=== PATIENT | male | born 1945 | race Caucasian/White ===

== ENCOUNTER 2019-04-21 15:17 | Emergency (ER) | payer MEDICARE, OTHER ==
[~2019-04-21] VITALS: Ht 180.3 cm; Wt 74.8 kg
[2019-04-21] MEDS ORDERED: LISINOPRIL2.5 MG PO (15:44)
[2019-04-21] MEDS ORDERED: KEFLEX500 MG PO (18:33)
== END 2019-04-21 19:09 | disposition home or self-care (01) ==
LOC: ED 15:17
DX: N39.0 Urinary tract infection, site not specified (principal); F17.200 Nicotine dependence, unspecified, uncomplicated; Z79.899 Other long term (current) drug therapy
CPT/HCPCS: 51702; 51798; 74022; 80053; 81001; 83690; 85025; 99283-25; 99406; J0696; J7030

== ENCOUNTER 2019-08-23 01:48 | Emergency (ER) | payer MEDICARE, OTHER ==
[~2019-08-23] VITALS: Ht 180.3 cm; Wt 69.8 kg
[~2019-08-23 01:48] MED LIST: CIPRO500 MG PO; FLOMAX0.4 MG PO; HYDREA500 MG PO; KEFLEX500 MG PO; MULTI VITAMIN1 EACH PO; PRINIVIL5 MG PO; PROSCAR5 MG PO
--- NOTE | 2019-08-23 20:44 | EKG ---
[facility] [address] [facility] [address] [place] [address] Signed Sinus bradycardia Left axis deviation Voltage criteria for left ventricular hypertrophy Cannot rule out Septal infarct , age undetermined ST \T\ T wave abnormality, consider inferior ischemia Abnormal ECG No previous ECGs available Confirmed by DEB STOVER MD ([id number]) on 08/23/2019 8:44:18 PM Electronically Signed By: DEB STOVER MD 08/23/19 2044 PATIENT NAME: DIAZ JOY Electrocardiogram DATE OF : 45 PHYSICIAN: DEB STOVER MD REPORT #: [id number] REPORT IS CONFIDENTIAL AND NOT TO BE RELEASED WITHOUT AUTHORIZATION
== END 2019-08-23 05:09 | disposition home or self-care (01) ==
LOC: ED 01:48
DX: I95.9 Hypotension, unspecified (principal); M54.6 Pain in thoracic spine; I10 Essential (primary) hypertension; F17.200 Nicotine dependence, unspecified, uncomplicated; Z79.899 Other long term (current) drug therapy
CPT/HCPCS: 71045; 80053; 83735; 84484; 85025; 93005; 93010; 99284-25; J7040

== ENCOUNTER 2020-11-18 09:28 | Emergency (ER) | payer MEDICARE, OTHER ==
[~2020-11-18] VITALS: Ht 180.3 cm; Wt 67.6 kg
[~2020-11-18 09:28] MED LIST changes: +PRINIVIL20 MG PO; -PRINIVIL5 MG PO
[2020-11-18] MEDS ORDERED: ADULT LOW DOSE81 MG PO (16:05)
[2020-11-19] MEDS ORDERED: HYDROCODON-ACE1 EA10 PO (08:41)
== END 2020-11-18 13:54 | disposition home or self-care (01) ==
LOC: ED 09:28
DX: K41.30 Unilateral femoral hernia, with obstruction, without gangrene, not specified as recurrent (principal); Z20.822 Contact with and (suspected) exposure to COVID-19; I10 Essential (primary) hypertension; F17.200 Nicotine dependence, unspecified, uncomplicated; Z79.899 Other long term (current) drug therapy
CPT/HCPCS: 74177; 80053; 80500; 81001; 85025; 96374; 99284-25; C9803; J1170; J7030; U0003

== ENCOUNTER 2020-11-18 13:49 | Observation (INO) | payer MEDICARE, OTHER ==
[~2020-11-18] VITALS: Ht 180.3 cm; Wt 62.3 kg
[2020-11-18] MEDS ORDERED: ADULT LOW DOSE81 MG PO (16:05)
[2020-11-19] MEDS ORDERED: HYDROCODON-ACE1 EA10 PO (08:41)
--- NOTE | 2020-11-19 19:00 | EKG ---
[facility] [address] [facility] [address] [place] [address] Signed Sinus rhythm with occasional premature ventricular complexes Left ventricular hypertrophy with repolarization abnormality Cannot rule out Septal infarct (cited on or before 23-AUG-2019) Abnormal ECG When compared with ECG of 23-AUG-2019 01:52, Significant changes have occurred Confirmed by DEB STOVRE MD (255) on 11/19/2020 7:00:37 PM Electronically Signed By: DEB STOVER MD 11/19/20 1900 PATIENT NAME: DIAZ JOY Electrocardiogram DATE OF : 45 PHYSICIAN: DEB STOVER MD REPORT #: [id number] REPORT IS CONFIDENTIAL AND NOT TO BE RELEASED WITHOUT AUTHORIZATION
== END 2020-11-19 13:25 | disposition home or self-care (01) ==
LOC: MS 13:49 → DSVR 15:20 → MS 15:20 → DSVR 15:20 → MS 20:35 → DSVR 20:35 → MS 11-19 13:25
PROVIDERS: ADMIT Surgery; ATTEND Surgery
PROC: 0YU64JZ Supplement Left Inguinal Region with Synthetic Substitute, Percutaneous Endoscopic Approach (ICD-10-PCS; principal; 2020-11-18 16:30)
DX: K40.30 Unilateral inguinal hernia, with obstruction, without gangrene, not specified as recurrent (principal); I10 Essential (primary) hypertension; F17.210 Nicotine dependence, cigarettes, uncomplicated
CPT/HCPCS: 00830; 93005; 93010; 94640; 94664; C1781; G0378; J0690; J1100; J2250; J2370; J2704; J3475; J7121

== ENCOUNTER 2020-12-19 08:19 | Emergency (ER) | payer MEDICARE, OTHER ==
[~2020-12-19] VITALS: Ht 180.3 cm; Wt 61.2 kg
[~2020-12-19 08:19] MED LIST changes: +ADULT LOW DOSE81 MG PO; +HYDROCODON-ACE1 EA10 PO
--- OUTSIDE RECORDS SUMMARY | 2020-12-19 08:26 | XMS ---
PreManage Notification: DIAZ JOY Security Senior Staff Psychologist Events No recent Security Events currently on file CRITERIA MET - [facility] CARE PROVIDERS There are no care providers on record at this time. Rolanda has no Care Guidelines for this patient. Anaya VISIT COUNT (12 MO.) 2 [facility] TOTAL 2 NOTE: Visits indicate total known visits. ED/C VISIT TRACKING (12 MO.) 12/19/2020 08:20 [facility] [place] TYPE: Emergency COMPLAINT: - LOWER BACK PAIN 11/18/2020 09:29 [facility] [place] TYPE: Emergency COMPLAINT: - ABDOMINAL PAIN DIAGNOSES: - Left lower quadrant pain - Other termination clerk (current) drug therapy - Nicotine dependence, unspecified, uncomplicated - Unilateral femoral hernia, with obstruction, without gangrene, not specified as recurrent - Essential (primary) hypertension INPATIENT VISIT TRACKING (12 MO.) 11/18/2020 15:20 [facility] [place] TYPE: Observation COMPLAINT: - INCARCERATED INGUINAL HERNIA DIAGNOSES: - Unilateral inguinal hernia, with obstruction, without gangrene, not specified as recurrent - Nicotine dependence, cigarettes, uncomplicated - Essential (primary) hypertension [id number]
== END 2020-12-19 09:58 | disposition home or self-care (01) ==
LOC: ED 08:19
DX: K59.00 Constipation, unspecified (principal); I10 Essential (primary) hypertension; D75.1 Secondary polycythemia; F17.200 Nicotine dependence, unspecified, uncomplicated; Z79.899 Other long term (current) drug therapy; Z79.82 Long term (current) use of aspirin
CPT/HCPCS: 72100; 81001; 99284-25

== ENCOUNTER 2022-10-29 08:15 | Day surgery (SDC) | payer MEDICARE, OTHER ==
[2022-10-29 09:34] VITALS: BP 193/87
--- NOTE | 2022-10-31 08:54 | OR ---
[facility] [address] [place], [place] [address] Signed DATE OF OPERATION: 10/29/2022 SURGEON: Amber Bond MD PREOPERATIVE DIAGNOSES: 1. 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 2. Soft tissue mass, left thoracolumbar area and right thoracolumbar area. POSTOPERATIVE DIAGNOSES: 1. 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 2. Soft tissue mass, left thoracolumbar area and right thoracolumbar area. PROCEDURE: biopty gun core biopsy of the of left posterior thoracolumbar soft tissue mass and core biopsy right thoracolumbar soft tissue mass. ANESTHESIA: 0.25% Marcaine with epinephrine. INDICATION: This 77-year-old white man is a patient of Dr. 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 He is recently a patient also of Dr. Carballo. He has been diagnosed as having left upper lobe adenocarcinoma of the lung. He has advanced COPD. PET scanning has shown probable metastatic disease in mediastinal lymph nodes as well as possibly right lung and questionably two soft tissue masses of the right thoracolumbar area and left thoracolumbar area. A biopsy was requested of the soft tissue masses in anticipating palliative therapy. The risk of bleeding, infection, and so forth were reviewed with him regarding core biopsies of these areas that he understands and wished to proceed. FINDINGS: Both sides provided three good core specimen tissue with a biopsy gun device. There were no complications. DESCRIPTION OF PROCEDURE: The patient was brought to the day surgery area and placed in the prone position. The lumbar areas were prepared with a chlorhexidine solution and draped sterilely. A 1% lidocaine was injected 1st over the left posterior thoracolumbar soft tissue mass. Local anesthesia allowed for incision with the tip of the blade. Using the Bard Electronically Signed By: AMBER BOND MD 10/31/22 0854 PATIENT NAME: DIAZ JOY OPERATIVE REPORT DATE OF : 45 REPORT #: [id number] PHYSICIAN: AMBER BOND MD PCP: MARLINE LIZARRAGA MD REPORT IS CONFIDENTIAL AND NOT TO BE RELEASED WITHOUT AUTHORIZATION [facility] [address] [place], [place] [address] Signed automatic disposable core biopsy device with a 22-gauge needle, three separate core specimens were obtained on the left side, elevating the neoplasm away from the chest wall. A Band-Aid was applied. Similar technique was used to provide three good core biopsies on the right side using separate instrumentation. A Band-Aid was applied. He tolerated the procedure well. MD HOLGER Smith/CONY /[id number] cc: Dara Carballo MD, PH.D. MD Marline Ellison MD Copies: DARA CARBALLO ROBERT C MD JOHNSON, ROBERT D DMD ~ Electronically Signed By: AMEBR BOND MD 10/31/22 0854 PATIENT NAME: DIAZ JOY OPERATIVE REPORT DATE OF : 45 REPORT #: [id number] PHYSICIAN: AMBER BOND MD PCP: MARLINE LIZARRAGA MD REPORT IS CONFIDENTIAL AND NOT TO BE RELEASED WITHOUT AUTHORIZATION
--- NOTE | 2022-11-08 15:16 | PATH ---
[facility] [address] [place] [address] Signed THIS IS AN ADDENDUM REPORT SPECIMEN(S): A LEFT LATERAL LUMBOTHORACIC SPECIMEN(S): B RIGHT LATERAL LUMBOTHORACIC SPECIMEN SOURCE: A. LEFT LATERAL LUMBOTHORACIC B. RIGHT LATERAL LUMBOTHORACIC CLINICAL HISTORY: Bilateral posterolateral lumbothoracic soft tissue masses greater than 5 cm; adenocarcinoma of lung. FINAL PATHOLOGIC DIAGNOSIS: A-B. Lymph nodes, left and right lateral lumbothoracic, needle core biopsies: - Low-grade B-cell lymphoma, see description and comment COMMENT: The differential diagnosis for this CD5 negative/CD10 negative low-grade B-cell lymphoma includes fadi marginal zone lymphoma and lymphoplasmacytic lymphoma. Features of a high-grade lymphoma or metastatic malignancy are not seen. Additional testing for gene rearrangements by FISH and MYD88 mutation analysis have been ordered for further classification. Testing for serum protein electrophoresis may provide additional information. Correlation with all clinical and radiographic information is needed. A diagnostic alert is initiated by Dr. Simental on November 02, 2022. This case was reviewed in consultation with a hematopathologist. BRP MICROSCOPIC EXAMINATION: Histologic sections of all submitted blocks (or IHC as applicable) are digitally scanned and examined. These findings, together with the gross examination, support the pathologic diagnosis. Sections of parts A and B show similar morphologic findings, consisting of lymphoid tissue effaced by a proliferation of small mature lymphocytes with irregular nuclei and scattered plasma cells. Immunohistochemical stains performed on block B1 demonstrate the following: CD3: Stains clusters of T cells CD5: Stains clusters of T cells CD10: Negative PATIENT NAME: DIAZ JOY PATHOLOGY DATE OF : 45 REPORT #: [id number] PHYSICIAN: MARIXA NAPOLES PCP: MARLINE LIZARRAGA MD REPORT IS CONFIDENTIAL AND NOT TO BE RELEASED WITHOUT AUTHORIZATION [facility] [address] [place], [place] [address] Signed CD20: Positive in atypical cells CD21: Stains the follicular dendritic cell meshwork CD23: Stains the follicular dendritic cell meshwork; negative in atypical cells CD43: Stains clusters of T cells; negative in atypical cells CD138: Stains clusters of plasma cells BCL2: Positive in atypical cells and T cells BCL6: Negative Cyclin D1: Negative MNDA: Positive in atypical cells PAX5: Positive in atypical cells SOX 11: Negative Ki-67: Proliferation index approximately 20-30% [employer] (bety): Strongly positive in plasma cells, dimly positive in the atypical cells Lambda (bety): Negative BRP GROSS DESCRIPTION: A. The specimen, labeled and designated "Furnish, left lateral lumbothoracic soft tissue mass biopsy," is received in formalin and consists of multiple cores and fragments of pink to white soft tissue (0.1-1.5 cm in greatest dimension). The tissue is inked chickaloon green, and the specimen is submitted entirely in cassette (A1-A2). B. The specimen, labeled and designated "Furnish, right lateral lumbothoracic soft tissue mass biopsy," is received in formalin and consists of 10 cores and fragments of white-campos soft tissue (0.2-0.6 cm in greatest dimension). The tissue is inked blue, and the specimen is submitted entirely in cassette (B1-B2). VB (under the direct supervision of a pathologist) The Gross Description was prepared using a voice recognition system. The report was reviewed for accuracy; however, sound-alike word errors, addition and/or deletions may occur. If there is any question about this report, please contact Client Services. ADDITIONAL NOTES: Immunohistochemical and/or in situ hybridization studies were performed on this case with the appropriate positive controls that react as expected. This test was developed and its performance characteristics determined by [facility]. It has not been cleared or approved by the U.S. Food and Drug Administration. The FDA has determined that such clearance or approval is not necessary. PATIENT NAME: DIAZ JOY PATHOLOGY DATE OF : 45 REPORT #: [id number] PHYSICIAN: MARIXA NAPOLES PCP: MARLINE LIZARRAGA MD REPORT IS CONFIDENTIAL AND NOT TO BE RELEASED WITHOUT AUTHORIZATION [facility] [address] [place] [id number] Signed This test is used for clinical purposes. It should not be regarded as investigational or for research. [facility] is certified under the Clinical Laboratory Improvement Amendments of 1988 (CLIA) as qualified to perform high complexity clinical laboratory testing. This assay has not been validated for specimens that have been decalcified. PERFORMING LABORATORY: Technical component was performed by [facility], [address] [place] [id number] (CLIA# [id number]). Professional interpretation was performed by [facility], [address], located within [facility] [address] (CLIA#: [id number]). ADDITIONAL NOTES: This test was developed and its performance characteristics determined by [facility] It has not been cleared or approved by the US Food and Drug Administration. The Oligo DNA probe vendor for this study was [employer]. PERFORMING LABORATORY: The technical component of the FISH testing was performed by [facility] [address] (CLIA#: [id number]). Professional interpretation [facility], [address] [place] [id number] (CLIA#: [id number]). IMAGES: A: BCL6 2F_002 A: BCL2 2F_002 A: MALT1 2F_002 FINAL DIAGNOSIS PERFORMED BY: Joshua Soto MD, Pathologist Nov 08 2022 2:23PM REASON FOR ADDENDUM: To report results of additional testing. Right lateral lumbothoracic, FISH (fluorescence in situ hybridization) RESULT: Not Detected INTERPRETATION: BCL6 rearrangement: Not detected. BCL2 rearrangement: Not detected. MALT1 rearrangement: Not detected. Fluorescence in situ hybridization (FISH) analysis was performed using a low-grade/Small B-Cell lymphoma specific set of probes. Counts for all probe signals were within the normal reference range. No evidence of rearrangements involving BCL-6, BCL-2, or MALT1 is detected. This PATIENT NAME: DIAZ JOY PATHOLOGY DATE OF : 45 REPORT #: [id number] PHYSICIAN: MARIXA NAPOLES PCP: MARLINE LIZARRAGA MD REPORT IS CONFIDENTIAL AND NOT TO BE RELEASED WITHOUT AUTHORIZATION [address] [address] Signed finding represents a NORMAL result. This analysis is limited to abnormalities detectable by the specific probes included in the study. FISH should be interpreted within the context of a full cytogenetic analysis and hematologic evaluation. ISCN: Probe Set Detail: BCL6 (3q27.3q28): nuc bety(BCL6x2)[100] MALT1 (18q21.31q21.32): nuc bety(EGLM8b1)[100] BCL2 (18q21.33): nuc bety (BCL2x2)[100] References: [place] of Genetics and Cytogenetics in Oncology and Hematology [email or web address] FISH Analysis Summary: Nuclei Scored: 100 Scoring Method: Manual; CPT Code 20969 Number of Probe units: 3 Multiplex Cells analyzed: Interphase Probe sets: Chrom 3: BCL6, Chrom 18: BCL2, Chrom 18: MALT1 Diagnostician: Joshua Soto MD Pathologist Diagnostician: Jon Simental MD Pathologist Electronically Signed 11/08/2022 Copies: ~ PATIENT NAME: DIAZ JOY PATHOLOGY DATE OF : 45 REPORT #: [id number] PHYSICIAN: MARIXA NAPOLES PCP: MARLINE LIZARRAGA MD REPORT IS CONFIDENTIAL AND NOT TO BE RELEASED WITHOUT AUTHORIZATION
== END 2022-10-29 09:35 | disposition home or self-care (01) ==
LOC: DS 08:15 → OPS 08:15 → OPV-DS 09:30 → OPS 09:30 → EDSTATUS 09:30 → OPS 09:35
PROVIDERS: ATTEND Surgery
PROC: 0JB70ZX Excision of Back Subcutaneous Tissue and Fascia, Open Approach, Diagnostic (ICD-10-PCS; principal; 2022-10-29)
DX: C85.10 Unspecified B-cell lymphoma, unspecified site (principal); C34.90 Malignant neoplasm of unspecified part of unspecified bronchus or lung; I10 Essential (primary) hypertension; J44.9 Chronic obstructive pulmonary disease, unspecified; F17.210 Nicotine dependence, cigarettes, uncomplicated; Z79.82 Long term (current) use of aspirin; Z79.899 Other long term (current) drug therapy
CPT/HCPCS: 88305; 88341; 88342; 88360; 88364; 88365; 88377

== ENCOUNTER 2023-11-13 17:57 | Emergency (ER) | payer OTHER, MEDICARE ==
[~2023-11-13] VITALS: Ht 167.6 cm; Wt 65.0 kg
[~2023-11-13 17:57] MED LIST changes: +AZITHROMYCIN500 MG PO; +BREZTRI AEROS10.7 GM INH; +MUCINEX600 MG PO; +PREDNISONE20 MG PO; +VENTOLIN HFA18 GM INH
--- OUTSIDE RECORDS SUMMARY | 2023-11-13 17:58 | XMS ---
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 - Patient eloped before treatment completed. - Patient with suicidal and/or homicidal ideations eloped. Details: Patient left AMA CRITERIA MET - Group Notification - [facility] CARE PROVIDERS There are no care providers on record at this time. Rolanda has no Care Guidelines for this patient. ECarol VISIT COUNT (12 MO.) 3 [facility]. TOTAL 3 NOTE: Visits indicate total known visits. ED/C VISIT TRACKING (12 MO.) 11/13/2023 17:58 [facility] [place] TYPE: Emergency COMPLAINT: - FALL 01/22/2023 17:46 [facility] [place] TYPE: Emergency COMPLAINT: - DIFFICULTY BREATHING 01/21/2023 01:22 [facility] [place] TYPE: Emergency COMPLAINT: - DIZZY DIAGNOSES: - Chronic obstructive pulmonary disease, unspecified - Contact with and (suspected) exposure to COVID-19 - Dehydration - Dependence on supplemental oxygen - Essential (primary) hypertension - Malignant neoplasm of unspecified part of unspecified bronchus or lung - Nicotine dependence, unspecified, uncomplicated - Other keno terminal operator (current) drug therapy - Procedure and treatment not carried out because of patient's decision for other reasons - Secondary malignant neoplasm of bone - Unspecified B-cell lymphoma, unspecified site - Weakness INPATIENT VISIT TRACKING (12 MO.) 01/22/2023 17:47 [facility] [place] TYPE: Observation COMPLAINT: - COPD EXACERBATION DIAGNOSES: - Acute respiratory failure with hypoxia - Chronic obstructive pulmonary disease with (acute) exacerbation - Essential (primary) hypertension - Nicotine dependence, unspecified, uncomplicated - Personal history of other malignant neoplasm of bronchus and lung [id number]
[2023-11-13] MEDS ORDERED: OXYCODONE HCL5 MG PO (18:10)
[2023-11-13] MEDS ORDERED: LOW DOSE ASPIRI81 MG PO (18:11)
[2023-11-13] MEDS ORDERED: ACETAMINOPHEN 500 MG TAB PO ONE (21:00)
[2023-11-13 21:28] VITALS: BP 167/101
== END 2023-11-13 21:28 | disposition home or self-care (01) ==
LOC: ED 17:57
DX: S20.211A Contusion of right front wall of thorax, initial encounter (principal); S70.01XA Contusion of right hip, initial encounter; W01.0XXA Fall on same level from slipping, tripping and stumbling without subsequent striking against object, initial encounter; I10 Essential (primary) hypertension; F17.200 Nicotine dependence, unspecified, uncomplicated; Z79.82 Long term (current) use of aspirin; Z79.899 Other long term (current) drug therapy
CPT/HCPCS: 71045; 73502; A9270

== ENCOUNTER 2023-12-28 10:04 | Emergency (ER) | payer MEDICARE, OTHER ==
[~2023-12-28] VITALS: Ht 167.6 cm; Wt 62.0 kg
[~2023-12-28 10:04] MED LIST changes: +LISINOPRIL20 MG PO; +LOW DOSE ASPIRI81 MG PO; +OXYCODONE HCL5 MG PO; -PRINIVIL20 MG PO
--- OUTSIDE RECORDS SUMMARY | 2023-12-28 10:11 | XMS ---
PreManage Notification: DIAZ JOY Security Supervisor Cell Efficiency Events 1 event(s) in the past 18 months Most recent security events: Elopement at [facility] 01/21/2023 01:22 - Patient eloped with IV in place. - Patient eloped before treatment completed. - Patient with suicidal and/or homicidal ideations eloped. Details: Patient left AMA CRITERIA MET - Group Notification CARE PROVIDERS There are no care providers on record at this time. Rolanda has no Care Guidelines for this patient. E.D. VISIT COUNT (12 MO.) 4 [facility]. TOTAL 4 NOTE: Visits indicate total known visits. ED/C VISIT TRACKING (12 MO.) 12/28/2023 10:09 [facility] [place] TYPE: Emergency COMPLAINT: - MEDICATION REFILL 11/13/2023 17:58 [facility] [place] TYPE: Emergency COMPLAINT: - FALL DIAGNOSES: - Contusion of right front wall of thorax, initial encounter - Contusion of right hip, initial encounter - Essential (primary) hypertension - Fall on same level from slipping, tripping and stumbling without subsequent striking against object, initial encounter - MCFP (current) use of aspirin - Nicotine dependence, unspecified, uncomplicated - Other skilled nursing (current) drug therapy - Pleurodynia 01/22/2023 17:46 [facility] [place] TYPE: Emergency [...] - Nicotine dependence, unspecified, uncomplicated - Other petroleum terminal plant operator (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
[2023-12-28] MEDS ORDERED: HYDROXYUREA500 MG PO (10:24)
[2023-12-28] MEDS ORDERED: PERCOCET 5-3251 EACH PO (10:38)
[2023-12-28 10:47] VITALS: BP 191/92
== END 2023-12-28 10:46 | disposition home or self-care (01) ==
LOC: ED 10:04
DX: Z76.0 Encounter for issue of repeat prescription (principal); I10 Essential (primary) hypertension; F17.200 Nicotine dependence, unspecified, uncomplicated; Z79.899 Other long term (current) drug therapy
CPT/HCPCS: 99281

== ENCOUNTER 2024-09-06 12:09 | Emergency (ER) | payer MEDICARE, OTHER ==
[~2024-09-06] VITALS: Ht 167.6 cm; Wt 60.3 kg
[~2024-09-06 12:09] MED LIST changes: +HYDROXYUREA500 MG PO; +PERCOCET 5-3251 EACH PO
--- OUTSIDE RECORDS SUMMARY | 2024-09-06 12:16 | XMS ---
PreManage Notification: DIAZ JOY Security Gerontological Nurse Practitioner Events No recent Security Events currently on file CRITERIA MET - Group Notification CARE PROVIDERS There are no care providers on record at this time. Rolanda has no Care Guidelines for this patient. Anaya VISIT COUNT (12 MO.) 3 [facility]EVEN Lai TOTAL 3 NOTE: Visits indicate total known visits. ED/C VISIT TRACKING (12 MO.) 09/06/2024 12:10 [facility] [place] TYPE: Emergency COMPLAINT: - HIP PAIN 12/28/2023 10:09 [facility] [place] TYPE: Emergency COMPLAINT: - MEDICATION REFILL DIAGNOSES: - Encounter for issue of repeat prescription - Essential (primary) hypertension - Nicotine dependence, unspecified, uncomplicated - Other long chain dyeing machine operator (current) drug therapy 11/13/2023 17:58 [facility] [place] TYPE: Emergency COMPLAINT: - FALL DIAGNOSES: - Contusion of right front wall of thorax, initial encounter - Contusion of right hip, initial encounter - Essential (primary) hypertension - Fall on same level from slipping, tripping and stumbling without subsequent striking against object, initial encounter - long term acute care registered nurse (current) use of aspirin - Nicotine dependence, unspecified, uncomplicated - Other long chain dyeing machine operator (current) drug therapy - Pleurodynia INPATIENT VISIT TRACKING (12 MO.) No inpatient visits to display in this time frame [id number]
[2024-09-06] MEDS ORDERED: OXYCODONE HCL5 MG PO (13:41)
[2024-09-06 14:03] VITALS: BP 168/98
== END 2024-09-06 14:04 | disposition home or self-care (01) ==
LOC: ED 12:09
DX: Z76.0 Encounter for issue of repeat prescription (principal); I10 Essential (primary) hypertension; F17.200 Nicotine dependence, unspecified, uncomplicated; Z79.899 Other long term (current) drug therapy
CPT/HCPCS: 99281

== ENCOUNTER 2025-01-01 10:56 | Emergency (ER) | payer MEDICARE, OTHER ==
[~2025-01-01] VITALS: Ht 167.6 cm; Wt 56.5 kg
--- OUTSIDE RECORDS SUMMARY | 2025-01-01 11:03 | XMS ---
PreManage Notification: DIAZ JOY Security Sales Architect Events No recent Security Events currently on file CRITERIA MET - Group Notification - [facility] - 2 Visits in 30 Days CARE PROVIDERS There are no care providers on record at this time. Rolanda has no Care Guidelines for this patient. [facility] T[facility] NOTE: Visits indicate total known visits. ED/C VISIT TRACKING (12 MO.) 01/01/2025 10:[address] [facility] [address] [place] TYPE: Emergency COMPLAINT: - WEAKNESS 12/05/2024 13:12 [facility] [place] TYPE: Emergency COMPLAINT: - CATHETER PROBLEM DIAGNOSES: - Benign prostatic hyperplasia without lower urinary tract symptoms - Chronic obstructive pulmonary disease, unspecified - Essential (primary) hypertension - Leakage of indwelling urethral catheter, initial encounter - Nicotine dependence, unspecified, uncomplicated - Other senior living (current) drug therapy 09/06/2024 12:10 [facility] [place] TYPE: Emergency COMPLAINT: - HIP PAIN DIAGNOSES: - Encounter for issue of repeat prescription - Essential (primary) hypertension - Nicotine dependence, unspecified, uncomplicated - Other dedicated intermodal truck driver (current) drug therapy INPATIENT VISIT TRACKING (12 MO.) No inpatient visits to display in this time frame [id number]
[2025-01-01] MEDS ORDERED: TRELEGY ELLIPT1 EACH (11:27)
[2025-01-01 11:33] LABS: BASOPHILS 0.7 % (0.2-1.2); EOSINOPHILS 1.7 % (0.8-7.0); LYMPHOCYTES 4.2 % (21.8-53.1); MCH 35.7 PG (25.7-32.2); MCHC 35.0 g/dL (32.3-36.5); MCV 102.0 fL (79.0-92.2); MONOCYTES 10.4 % (5.3-12.2); NEUTROPHILS 81.8 % (34.0-67.9); RBC 3.95 M/uL (4.63-6.08)
[2025-01-01 11:55] LABS: ALT (SGPT) 8.0 U/L (14-59); AST (SGOT) 10.0 U/L (15-37); GLOMERULAR FILTRATION RATE,EST 37.0 mL/min (>60); PROTEIN, TOTAL 7.0 g/dL (6.4-8.2); UREA NITROGEN 80.0 mg/dL (7-18)
[2025-01-01] MEDS ORDERED: SODIUM CHLORIDE 0.9% 1,000 ML IV PRN (12:30)
[2025-01-01 13:50] VITALS: BP 141/68
--- NOTE | 2025-01-02 22:22 | EKG ---
[facility] [address] [place] [place] [address] Signed Normal sinus rhythm Left axis deviation Incomplete right bundle branch block Cannot rule out Anterior infarct (cited on or before 23-AUG-2019) Abnormal ECG When compared with ECG of 22-JAN-2023 17:49, Significant changes have occurred Confirmed by Kalie Walker MD () on 01/02/2025 10:22:25 PM Electronically Signed By: KALIE WALKER MD 01/02/252221 PATIENT NAME: DIAZ JOY Electrocardiogram DATE OF : 45 PHYSICIAN: KALIE WALKER MD REPORT #: [id number] REPORT IS CONFIDENTIAL AND NOT TO BE RELEASED WITHOUT AUTHORIZATION
== END 2025-01-01 13:53 | disposition home or self-care (01) ==
LOC: ED 10:56
PROVIDERS: Emergency Medicine
DX: N19 Unspecified kidney failure (principal); E86.0 Dehydration; R19.7 Diarrhea, unspecified; I10 Essential (primary) hypertension; J44.9 Chronic obstructive pulmonary disease, unspecified; F17.200 Nicotine dependence, unspecified, uncomplicated; Z79.51 Long term (current) use of inhaled steroids; Z79.899 Other long term (current) drug therapy
CPT/HCPCS: 36415; 51798; 80053; 83735; 84484; 85025; 85060; 93005; 93010; 96360; 99284-25; J7030

== ENCOUNTER 2025-02-22 16:16 | Inpatient (IN) | payer MEDICARE, OTHER ==
[~2025-02-22] VITALS: Ht 167.6 cm; Wt 55.2 kg
--- OUTSIDE RECORDS SUMMARY | ~2025-02-22 | XMS | Continuity of Care Document ---
Demographics + + + | Address | [address] | | | [place] [address] | + + + | Preferred Language | Unknown | + + + | Marital Status | Never | + + + | Taoist Affiliation | Unknown | + + + | Race | White | + + + | Ethnic Group | Not or | + + + Author + + + | Author | [facility] | + + + | Organization | [facility] | + + + | Address | [address] | | | [place] [address] | + + + | Phone | | + + + Care Team Providers + + + + | Care Farm Specialist Name | Role | Phone | + + + + Unavailable | Unavailable | + + + + Unavailable | Unavailable | + + + + Unavailable | Unavailable | + + + + Allergies and Intolerances + + + + + + | date | description | facility | reaction | severity | + + + + + + | 2024-12-05 | UNK | [facility] | (no reaction) | (no severity) | | 00:00 | | [facility] | [facility] | | | + + + + + + Encounters No information. Functional Status No information. Immunizations No information. Medications + + + + | date | description | facility | + + + + | (no date) | OXYCODONE HCL | [facility] | | | | [facility] | + + + + | (no date) | HYDROXYUREA | [facility] | | | | [facility] | + + + + | (no date) | HYDROXYUREA | [facility] | | | | [facility] | + + + + | (no date) | | [facility] | | | Fluticasone/Umeclidin/Vilan | [facility] | | | ter | | + + + + | (no date) | HYDROXYUREA | [facility] | | | | [facility] | + + + + | (no date) | HYDROXYUREA | [facility] | | | | [facility] | + + + + | (no date) | FINASTERIDE | [facility] | | | | [facility] | + + + + | (no date) | FINASTERIDE | [facility] | | | | [facility] | + + + + | (no date) | CIPROFLOXACIN HCL | [facility] | | | | [facility] | + + + + | (no date) | CIPROFLOXACIN HCL | [facility] | | | | [facility] | + + + + | (no date) | ASPIRIN | [facility] | | | | [facility] | + + + + | (no date) | ASPIRIN | [facility] | | | | [facility] | + + + + | (no date) | LISINOPRIL | [facility] | | | | [facility] | + + + + | (no date) | LISINOPRIL | [facility] | | | | [facility] | + + + + | (no date) | ASPIRIN | [facility] | | | | [facility] | + + + + | (no date) | ASPIRIN | [facility] | | | | [facility] | + + + + | (no date) | ALBUTEROL SULFATE | [facility] | | | | [facility] | + + + + | (no date) | ALBUTEROL SULFATE | [facility] | | | | [facility] | + + + + | (no date) | TAMSULOSIN HCL | [facility] | | | | [facility] | + + + + | (no date) | TAMSULOSIN HCL | [facility] | | | | [facility] | + + + + Problems + + + + | date | description | facility | + + + + | 2024-12-05 00:00 | Problem with Pelayo | [facility] | | | catheter | [facility] | + + + + | 2024-12-05 00:00 | Problem with Pelayo | [facility] | | | catheter | [facility] | + + + + | 2025-01-01 00:00 | Uremia | [facility] | | | | [facility] | + + + + Procedures No information. Results/Labs +--------+--------+ +---------+--------+---------+ | test | date | facility | value | unit | notes | +--------+--------+ +---------+--------+---------+ + + | Result panel 1 | + + + + + +---------+ + + | WBC # Bld | 2025-01-01 | | 11.30 | (missing) | (missing) | | Auto | 11:28:07 | [facility] | | | | + + + +---------+ + + + + | Result panel 2 | + + + + + +--------+ + + | Neutrophils | 2025-01-01 | | 81.8 | (missing) | (missing) | | NFr Bld | 11:28:07 | [facility] | | | | | Auto | [facility] | | | | + + + +--------+ + + + + | Result panel 3 | + + + + + +-------+ + + | Lymphocytes | 2025-01-01 | | 4.2 | (missing) | (missing) | | NFr Bld | 11::07 | [facility] | | | | | Auto | [facility] | | | | + + + +-------+ + + + + | Result panel 4 | + + + + + +--------+ + + | Monocytes | 2025-01-01 | | 10.4 | (missing) | (missing) | | NFr Bld Auto | 11:28:07 | [facility] | | | | + + + +--------+ + + + + | Result panel 5 | + + + + + +-------+ + + | Eosinophil | 2025-01-01 | | 1.7 | (missing) | (missing) | | NFr Bld Auto | 11:28:07 | [facility] | | | | + + + +-------+ + + + + | Result panel 6 | + + + + + +-------+ + + | Basophils | 2025-01-01 | | 0.7 | (missing) | (missing) | | NFr Bld Auto | 11:28:07 | [facility] | | | | + + + +-------+ + + + + | Result panel 7 | + + + + + +-------+---------+ + | Glucose | 2025-01-01 | | 136 | mg/dL | (missing) | | SerPl-mCnc | 11:28:07 | [facility] | | | | + + + +-------+---------+ + + + | Result panel 8 | + + + + + +------+---------+ + | BUN | 2025-01-01 | | 80 | mg/dL | (missing) | | [facility] | 11::07 | [facility] | | | | + + + +------+---------+ + + + | Result panel 9 | + + + + + +--------+---------+ + | Creat | 2025-01-01 | | 1.82 | mg/dL | (missing) | | [facility] | 11::07 | [facility] | | | | + + + +--------+---------+ + + + | Result panel 10 | + + + + + +------+ + + | eGFRcr | 2025-01-01 | | 37 | (missing) | (missing) | | SerPlBld | 11:28:07 | [facility] | | | | | CKD-EPI 2020 | [facility] | | | | + + + +------+ + + + + | Result panel 11 | + + + + + +---------+ + + | BUN/Creat | 2025-01-01 | | 43.95 | (missing) | (missing) | | SerPl | 11:28:07 | [facility] | | | | + + + +---------+ + + + + | Result panel 12 | + + + + + + + + + | Bld Smear | 2025-01-01 | | (missing) | (missing) | (missing) | | Interp | 11:28:07 | [facility] | | | | + + + + + + + + + | Result panel 13 | + + + + + +-------+ + + | Sodium | 2025-01-01 | | 138 | (missing) | (missing) | | SerPl-sCnc | 11:28:07 | [facility] | | | | + + + +-------+ + + + + | Result panel 14 | + + + + + +-------+ + + | Potassium | 2025-01-01 | | 3.8 | (missing) | (missing) | | [facility] | 11:28:07 | [facility] | | | | + + + +-------+ + + + + | Result panel 15 | + + + + + +-------+ + + | Chloride | 2025-01-01 | | 107 | (missing) | (missing) | | SerPl-sCnc | 11:28:07 | [facility] | | | | + + + +-------+ + + + + | Result panel 16 | + + + + + +------+ + + | CO2 | 2025-01-01 | | 21 | (missing) | (missing) | | SerPl-sCnc | 11:28:07 | [facility] | | | | + + + +------+ + + + + | Result panel 17 | + + + + + +--------+ + + | Anion Gap | 2025-01-01 | | 13.8 | (missing) | (missing) | | SerPl | 11:28:07 | [facility] | | | | | Calculated.4 | [facility] | [facility] | | | | + + + +--------+ + + + + | Result panel 18 | + + + + + +-------+---------+ + | Calcium | 2025-01-01 | | 9.2 | mg/dL | (missing) | | SerPl-mCnc | 11:28:07 | [facility] | | | | + + + +-------+---------+ + + + | Result panel 19 | + + + + + +-------+---------+ + | Magnesium | 2025-01-01 | | 2.0 | mg/dL | (missing) | | SerPl-mCnc | 11:28:07 | [facility] | | | | + + + +-------+---------+ + + + | Result panel 20 | + + + + + +-------+ + + | Prot | 2025-01-01 | | 7.0 | (missing) | (missing) | | SerPl-mCnc | 11:28:07 | [facility] | | | | + + + +-------+ + + + + | Result panel 21 | + + + + + +-------+ + + | Albumin | 2025-01-01 | | 3.5 | (missing) | (missing) | | SerPl-[facility] | 11:28:07 | [facility] | | | | + + + +-------+ + + + + | Result panel 22 | + + + + + +-------+ + + | Globulin | 2025-01-01 | | 3.5 | (missing) | (missing) | | Ser-mCnc | 11:28:07 | [facility] | | | | + + + +-------+ + + + + | Result panel 23 | + + + + + +--------+ + + | RBC # Bld | 2025-01-01 | | 3.95 | (missing) | (missing) | | Auto | 11:28:07 | [facility] | | | | + + + +--------+ + + + + | Result panel 24 | + + + + + +--------+ + + | | 2025-01-01 | | 1.00 | (missing) | (missing) | | Albumin/Glob | 11:28:07 | [facility] | | | | | SerPl | [facility] | | | | + + + +--------+ + + + + | Result panel 25 | + + + + + +-------+---------+ + | Bilirub | 2025-01-01 | | 0.4 | mg/dL | (missing) | | SerPl-mCnc | 11:28:07 | [facility] | | | | + + + +-------+---------+ + + + | Result panel 26 | + + + + + +------+ + + | AST | 2025-01-01 | | 10 | (missing) | (missing) | | SerPl-cCnc | 11:28:07 | [facility] | | | | + + + +------+ + + + + | Result panel 27 | + + + + + +-----+ + + | ALT | 2025-01-01 | | 8 | (missing) | (missing) | | SerPl-cCnc | 11:28:07 | [facility] | | | | + + + +-----+ + + + + | Result panel 28 | + + + + + +------+ + + | ALP | 2025-01-01 | | 86 | (missing) | (missing) | | SerPl-cCnc | 11:28:07 | [facility] | | | | + + + +------+ + + + + | Result panel 29 | + + + + + +--------+ + + | Troponin I | 2025-01-01 | | 14.9 | (missing) | (missing) | | SerPl | 11:28:07 | [facility] | | | | | HS-mCnc [facility] | | | | + + + +--------+ + + + + | Result panel 30 | + + + + + +--------+ + + | Hgb | 2025-01-01 | | 14.1 | (missing) | (missing) | | Bld-mCnc | : | [facility] | | | | + + + +--------+ + + + + | Result panel 31 | + + + + + +--------+ + + | Hct VFr.DF | 2025-01-01 | | 40.3 | (missing) | (missing) | | Bld Auto | :07 | [facility] | | | | + + + +--------+ + + + + | Result panel 32 | + + + + + +---------+ + + | RBC Auto | 2025-01-01 | | 102.0 | (missing) | (missing) | | | 11:28:07 | [facility] | | | | + + + +---------+ + + + + | Result panel 33 | + + + + + +--------+ + + | MCH RBC Qn | 2025-01-01 | | 35.7 | (missing) | (missing) | | Auto | 11:: | [facility] | | | | + + + +--------+ + + + + | Result panel 34 | + + + + + +--------+ + + | MCHC RBC | 2025-01-01 | | 35.0 | (missing) | (missing) | | Auto-EntMCnc | ::07 | [facility] | | | | + + + +--------+ + + + + | Result panel 35 | + + + + + +-------+ + + | Platelet # | 2025-01-01 | | 405 | (missing) | (missing) | | Bld Auto | 11:28:07 | [facility] | | | | + + + +-------+ + + Social History +--------+ + + | date | description | facility | +--------+ + + Vital Signs + + + +---------+ | date | measurement | value | units | + + + +---------+ | 2024-12-05 00:00 | BMI | 21.5 | kg/m2 | + + + +---------+ | 2024-12-05 00:00 | BP_diastolic | 88 | mmHg | + + + +---------+ | 2024-12-05 00:00 | BP_systolic | 155 | mmHg | + + + +---------+ | 2024-12-05 00:00 | heart_rate | 71 | /min | + + + +---------+ | 2024-12-05 00:00 | height_metric | 167.64 | cm | + + + +---------+ | 2024-12-05 00:00 | height_standard | 66 | in | + + + +---------+ | 2024-12-05 00:00 | o2_saturation | 96 | % | + + + +---------+ | 2024-12-05 00:00 | respiration_rate | 20 | /min | + + + +---------+ | 2024-12-05 00:00 | temperature_metric | 37.11 | C | | | | | | + + + +---------+ | 2024-12-05 00:00 | | 98.8 | F | | | temperature_standar | | | | | d | | | + + + +---------+ | 2024-12-05 00:00 | weight_metric | 60.299 | kg | + + + +---------+ | 2024-12-05 00:00 | weight_metric | 60.3 | kg | + + + +---------+ | 2024-12-05 00:00 | weight_standard | 132.937 | lb | + + + +---------+ | 2024-12-05 00:00 | weight_standard | 132.94 | lb | + + + +---------+ | 2025-01-01 00:00 | BMI | 20.1 | kg/m2 | + + + +---------+ | 2025-01-01 00:00 | BP_diastolic | 68 | mmHg | + + + +---------+ | 2025-01-01 00:00 | BP_systolic | 141 | mmHg | + + + +---------+ | 2025-01-01 00:00 | heart_rate | 70 | /min | + + + +---------+ | 2025-01-01 00:00 | height_metric | 167.64 | cm | + + + +---------+ | 2025-01-01 00:00 | height_standard | 66 | in | + + + +---------+ | 2025-01-01 00:00 | o2_saturation | 97 | % | + + + +---------+ | 2025-01-01 00:00 | respiration_rate | 18 | /min | + + + +---------+ | 2025-01-01 00:00 | | 97.9 | F | | | temperature_standar | | | | | d | | | + + + +---------+ | 2025-01-01 00:00 | weight_metric | 56.501 | kg | + + + +---------+ | 2025-01-01 00:00 | weight_standard | 124.562 | lb | + + + +---------+"
--- OUTSIDE RECORDS SUMMARY | ~2025-02-22 | XMS | Continuity of Care Document ---
Demographics + + + | Address | [address] | | | [place] [address] | + + + | Preferred Language | Unknown | + + + | Marital Status | Never | + + + | Buddhist Affiliation | Unknown | + + + | Race | White | + + + | Ethnic Group | Not or | + + + Author + + + | Author | [facility] | + + + | Organization | [facility] | + + + | Address | [address] | | | [place] [address] | + + + | Phone | | + + + Care Team Providers + + + + | Care Grain Trader Name | Role | Phone | + [...] [facility] | | | | [facility] | + + + + | (no date) | HYDROXYUREA | [facility] | | | | [facility] | + + + + | (no date) | HYDROXYUREA | [facility] | | | | [facility] | + + + + | (no date) | | [facility] | | | Fluticasone/Umeclidin/Vilan | [facility] | | | ter | | + + + + | (no date) | HYDROXYUREA | [facility] | | | | [facility] | + + + + | (no date) | HYDROXYUREA | [facility] | | | | [facility] | + + + + | (no date) | FINASTERIDE | [facility] | | | | [facility] | + + + + | (no date) | FINASTERIDE | [facility] | | | | [facility] | + + + + | (no date) | CIPROFLOXACIN HCL | [facility] | | | | [facility] | + + + + | (no date) | CIPROFLOXACIN HCL | [facility] | | | | [facility] | + + + + | (no date) | ASPIRIN | [facility] | | | | [facility] | + + + + | (no date) | ASPIRIN | [facility] | | | | [facility] | + + + + | (no date) | LISINOPRIL | [facility] | | | | [facility] | + + + + | (no date) | LISINOPRIL | [facility] | | | | [facility] | + + + + | (no date) | ASPIRIN | [facility] | | | | [facility] | + + + + | (no date) | ASPIRIN | [facility] | | | | [facility] | + + + + | (no date) | ALBUTEROL SULFATE | [facility] | | | | [facility] | + + + + | (no date) | ALBUTEROL SULFATE | [facility] | | | | [facility] | + + + + | (no date) | TAMSULOSIN HCL | [facility] | | | | [facility] | + + + + | (no date) | TAMSULOSIN HCL | [facility] | | | | [facility] | + + + + Problems + + + + | date | description | facility | + + + + | 2024-12-05 00:00 | Problem with Pelayo | [facility] | | | catheter | [facility] | + + + + | 2024-12-05 00:00 | Problem with Pelayo | [facility] | | | catheter | [facility] | + + + + | 2025-01-01 00:00 | Uremia | [facility] | | | | [facility] | + + + + [...] 3.8 | (missing) | (missing) | | [facility] | 11:28:07 | [facility] | | [...]
[~2025-02-22 16:16] MED LIST changes: +TRELEGY ELLIPT1 EACH INH
--- OUTSIDE RECORDS SUMMARY | 2025-02-22 16:23 | XMS ---
PreManage Notification: DIAZ JOY Security Casino Host Events No recent Security Events currently on file CRITERIA MET - Group Notification CARE PROVIDERS There are no care providers on record at this time. Rolanda has no Care Guidelines for this patient. Anaya VISIT COUNT (12 MO.) 4 [facility]ai TOTAL 4 NOTE: Visits indicate total known visits. ED/UCC VISIT TRACKING (12 MO.) 02/22/2025 16:16 [facility] [place] TYPE: Emergency COMPLAINT: - DIARRHEA 01/01/2025 10:57 [facility] [place] TYPE: Emergency COMPLAINT: - WEAKNESS DIAGNOSES: - Chronic obstructive pulmonary disease, unspecified - Dehydration - Diarrhea, unspecified - Essential (primary) hypertension - intermediate (current) use of inhaled steroids - Nicotine dependence, unspecified, uncomplicated - Other data officer (current) drug therapy - Unspecified kidney failure - Weakness 12/05/2024 13:12 [facility] [place] TYPE: Emergency COMPLAINT: - CATHETER PROBLEM DIAGNOSES: - Benign prostatic hyperplasia without lower urinary tract symptoms - Chronic obstructive pulmonary disease, unspecified - Essential (primary) hypertension - Leakage of indwelling urethral catheter, initial encounter - Nicotine dependence, unspecified, uncomplicated - Other fpc (current) drug therapy 09/06/2024 12:[address] [facility] [place] TYPE: Emergency COMPLAINT: - HIP PAIN DIAGNOSES: - Encounter for issue of repeat prescription - Essential (primary) hypertension - Nicotine dependence, unspecified, uncomplicated - Other data officer (current) drug therapy INPATIENT VISIT TRACKING (12 MO.) No inpatient visits to display in this time frame [id number]
[2025-02-22 17:24] LABS: BASOPHILS 0.4 % (0.2-1.2); EOSINOPHILS 0.6 % (0.8-7.0); LYMPHOCYTES 2.5 % (21.8-53.1); MCH 37.5 PG (25.7-32.2); MCHC 33.3 g/dL (32.3-36.5); MCV 112.4 fL (79.0-92.2); MONOCYTES 7.8 % (5.3-12.2); NEUTROPHILS 87.8 % (34.0-67.9); RBC 2.83 M/uL (4.63-6.08)
[2025-02-22] MEDS ORDERED: SODIUM CHLORIDE 0.9% 1,000 ML IV PRN (17:30)
[2025-02-22 17:34] LABS: ALT (SGPT) 22.0 U/L (14-59); AST (SGOT) 12.0 U/L (15-37); GLOMERULAR FILTRATION RATE,EST 43.0 mL/min (>60); PROTEIN, TOTAL 7.1 g/dL (6.4-8.2); UREA NITROGEN 51.0 mg/dL (7-18)
[2025-02-22 18:39] LABS: BLOOD/HGB, URINE NEGATIVE (Negative); KETONE, URINE NEGATIVE (Negative); LEUK ESTERASE, URINE TRACE (negative); NITRITE, URINE NEGATIVE (negative)
[2025-02-22 18:45] LABS: BACTERIA, URINE NONE SEEN /hpf (negative); CASTS, URINE NONE SEEN \\lpf; CRYSTALS, URINE NONE SEEN (0-1+); EPITHELIAL CELLS, URINE SQUAMOUS 1+ /lpf (0-1+)
[2025-02-22 18:46] LABS: REFLEX CULTURE, URINE Yes (No)
[2025-02-22] MEDS ORDERED: AZITHROMYCIN 250 MG TAB PO ONE (20:30)
[2025-02-22] MEDS ORDERED: LACTATED RINGER'S 1,000 ML IV SCH (20:45)
--- NOTE | 2025-02-22 21:03 | NUR ---
PT ALERT AND ORIENTED, C/O BACK SPASMS, MEDICATED WITH TORADOL. ivf INFUSING W/O PROBLEMS. TELE IN PLACE. LIDODREM PATCH REMOVED FROM BACK, HELPED WITH REPOSITIONING. TOOK FLEETS ENEMA AFTER SEVERAL CUES. TOLERAING SIPD OF FLUIDS WELL. F/C PATENT.
[2025-02-22 21:04] VITALS: BP 161/53
--- NOTE | 2025-02-22 21:19 | NUR ---
ADMITTED AT 2100 VIA STRETCHERFROM ER. WALKED TO BRP AND VOIDED, BACK TO BED 1PA, ALERT AND ORIENTED. AWARE OF CONTACT ENTERIC ISOLATION PRECAUTIONS AND NEED FOR STOOL SAMPLE.
--- NOTE | 2025-02-22 21:20 | NUR ---
pt ARRIVES FROM ER VIA STRETCHER. SBA TO RESTROOM FOR VOID/STOOL. BACK TO BED. ADMISSION COMPLETE. ORIENTATION TO ROOM AND CALL LIGHT PROVIDED. BED ALARM ON. CLEAR LIQUIDS PROVIDED. EDUCATION PROVIDED. TELE AND CPOX IN PLACE.
--- NOTE | 2025-02-22 21:50 | NUR ---
CALL LIGHT ANSWERED. pt IMPULSIVE, HURRIES TO RESTROOM FOR VOID. PASSING GAS AND LIQUID STOOL EN ROUTE TO RESTROOM. GAIT STEADY. pt STATES HE DID NOT HAVE BM. EDUCATED pt, AGREEABLE TO WEAR ATTENDS. DOES NOT WAIT FOR STAFF TO ASSIST, DROPS TELE WITH GOWN TO FLOOR. RN RAVI NOW IN ROOM ASSISTING WITH LINES. NEW GOWN APPLIED. pt CLEANS SELF WITH WIPES. WASHES HANDS. RN RAVI REMAINS IN ROOM.
--- NOTE | 2025-02-22 21:58 | NUR ---
pt incontinent of dark colored semiliquid bm, unable to collect stool sample at that time. Very anxious, not following instructions. Up to [facility] with 1PA, slightly unsteady and sob. huffing and puffing on return. Declined O2 placement at this time, asked several times. "Ill just robles and puff and it will go to the 96's%" CPOx on at bedside, 70% when first applied on returning from [facility]. went up to 94% on room air after about half a minute. Resp 32 at that time and then back to 22. Tele back on, wiped well after pt took it off and it tiffany on gown which had smear of bm. tele#[address] IVF infusing w/o problems. repositions slef in bed. Bed alrm in place. All cares explained several times, anxious and adamant to be independent. fall precautions and why to just let us help with minimum stuff/medical equipment that he is not familiar with. "I can do it, Celestino not an invalid". efforts praised and reassured. continue to explain cares prior to and still needing stool sample. Jello, broth and liquids on at bedside "I dont get it why I cant have that delicious sandwich" explained why on clear liquids. semireceptive.
--- NOTE | 2025-02-22 22:50 | NUR ---
DR PLUNKETT NOTIFIED OF PT CHRONIC PAIN AND THAT HE STATES THAT HE TAKES OXYCODONE 5MG Q3H PRN PAIN. NEW ORDER FOR ONE TIME ORDER FOR OXYCODONE 5MG PER PAIN. WILL MEDICATE PT WHEN HE ASK FOR PAIN MEDS
[2025-02-22 22:52] VITALS: BP 161/53
[2025-02-22] MEDS ORDERED: OXYCODONE HCL 5 MG TAB PO ONE (23:00)
--- NOTE | 2025-02-22 23:19 | NUR ---
pT HAS BEEN UP TO [facility] FOR VOIDING 4 TIMES SINCE ADMIT, WAS INCONTINENT OF BM SOON AFTER ADMIT, UNABLE TO COLLECT STOOL SAMPLE AT THAT TIME. PT AWARE OF NEED FOR STOOL SAMPLE. ON ROOM AIR, SOB NOTED WITH EXERTION, ASKED SEVERAL TIMES AND CONTINUES TO DECLINE TO USE O2. CPOX ON AT BEDSIDE. C/O BACK PAIN. MEDICATED WITH OXYCODONE 5MG PO. IVF INFUSING "I JUST WANT FOOD'. EXPLAINED WHY OF CLEAR LIQUIDS, NOT RECEPTIVE, CONTINUE TO EXPLAIN ALL CARES. PT IN BED, REPOSITIONS SELF IN BED
[2025-02-23] VITALS (11 sets, daily range): BP systolic 106–153; BP diastolic 46–73
--- NOTE | 2025-02-23 00:45 | NUR ---
Up to [facility], stool sample obtained, sent to lab. Pt argumentative, not receptive to information given, all tomy explained prior to, continues on contact enteric isolation precautions until cdiff results back
--- NOTE | 2025-02-23 00:55 | NUR ---
ASSISTED PATIENT TO THE BATHROOM. PATIENT HAD A BM. SAMPLE COLLECTED AND SENT TO LAB. ASSISTED PATIENT CLEANED UP. REPLACED GOWN, DRAW SHEETS, CHUX AND PULL UPS SOILED WITH BM. PATIENT IS BACK IN BED. CALL LIGHT WITHIN REACH. BED ALARM ON FOR SAFETY.
--- NOTE | 2025-02-23 01:19 | NUR ---
DR PLUNKETT NOTIFIED OF PTS C/O BACK AND GENERAL PAIN AND WANTING HIS HOME MED OFR PAIN. NEW ORDER FOR OXYCODONE 5MG PO Q3HR PRN RECEIVED. TO REVIEW IN AM
[2025-02-23] MEDS ORDERED: OXYCODONE HCL 5 MG TAB PO PRN (01:30)
--- NOTE | 2025-02-23 03:11 | NUR ---
pT BED ALRM GOING OFF. UP TO EDGE OF BED. VOIDED SMALL AMOUNTS OF MEDIUM YELLOW COLORED URINE SMALL AMOUNT. REPOSITIONED SELF BACK IN BED. VERY MINIMUM SOB NOTED WITH EXERTION THIS TIME. WAS MORE CALM AND COOPERATIVE TO FOLLOWING INSTRUCTIONS. ivf INFUSING W/O PROBLEMS, NO C/O PAIN WHEN ASKED. WRITTEN BOOKLETS ON C DIFF AND COLITIS GIVEN TO PT. NOT READ BACK HE WASNTED THE LIGHTS OFF, WILL EXPLAIN IN AM. COOPERATIVE WITH ASSESSMENT AND VITALS. CPOX ON AT BEDSIDE, ON ROOM AIR, LUNGS WITH CRACKLES AT BASES. C DIFF RESULTS BACK, POSITIVE FOR C DIFF. CONTINUES ON CONTACT ISOLATION PRECAUTIONS
--- NOTE | 2025-02-23 03:35 | NUR ---
BED ALRM GOING OFF, UP TO EDGE OF BED, USING URINAL
--- NOTE | 2025-02-23 03:41 | NUR ---
UP TO BRP, WAS INCONTINENT OF SEMILIQUID BM. SKIN CARE DONE AND CLEAN ATTENDS IN PLACE. BACK TO BED, AGAIN DESATTED TO 85% ON ROOM AIR, RESP 28. HUFFING AND PUFFING AND AGAIN DECLINED TO USE O2. CPOX ON AT BEDSIDE. SATS BACK TO 95%, PULSE 89, RESP 22. LUNGS NO CHANGES CRACKLES AT BASES
--- NOTE | 2025-02-23 03:45 | NUR ---
TELE#[address] SINUS TACH
--- NOTE | 2025-02-23 05:30 | NUR ---
Pt used call light, up standing edge of bed twice. assisted to brp, voided x2, continues to decline to use hat or urinal. Back to bed. tolerated much betters, sats 93% on return. SOb, increased huffing and puffing still present but much better than earlier. Continues to decline O2. IVF infusing w/o problems. c/o back pain. Medicated with Oxycodone 5mg po. tolerating sips of clear fluids "Celestino still hungry and want real food" Explained again reasoning behind clear liquids at this time. and that his stool sample was positive for C-Diff, semireceptive "How did I got it, I dont go out and rarely have visitors". Repositions self in bed. bedside CPOX in p[patricio, tele#[address] in [address] SR
[2025-02-23 05:59] LABS: BASOPHILS 0.6 % (0.2-1.2); EOSINOPHILS 1.8 % (0.8-7.0); LYMPHOCYTES 3.1 % (21.8-53.1); MCH 37.5 PG (25.7-32.2); MCHC 33.2 g/dL (32.3-36.5); MCV 112.9 fL (79.0-92.2); MONOCYTES 10.3 % (5.3-12.2); NEUTROPHILS 83.5 % (34.0-67.9); RBC 2.56 M/uL (4.63-6.08)
[2025-02-23 06:12] LABS: SMEAR REVIEW BLOOD SEE COMMENTS
[2025-02-23 06:15] LABS: ALT (SGPT) 17.0 U/L (14-59); AST (SGOT) 11.0 U/L (15-37); GLOMERULAR FILTRATION RATE,EST 54.0 mL/min (>60); PROTEIN, TOTAL 6.0 g/dL (6.4-8.2); UREA NITROGEN 41.0 mg/dL (7-18)
--- NOTE | 2025-02-23 07:38 | NUR ---
REPORT RECIEVED FROM SUNNY RODRIGUES. PATIENT RESTING IN BED ON HIS LEFT SIDE. EVEN AND UNLABORED RESPIRATIONS NOTED. CALL LIGHT AND PERSONAL BELONGINGS ARE WITHIN REACH.
[2025-02-23] MEDS ORDERED: OXYCODONE HCL5 M3 PO (08:23)
[2025-02-23] MEDS ORDERED: DIPHENOXYLATE-1 EACH PO (08:24)
--- NOTE | 2025-02-23 08:45 | NUR ---
PATIENT SITTING UP IN BED WITH BREAKFAST TRAY WITHIN REACH. CALL LIGHT AND PERSONAL BELONGINGS ARE WITHIN REACH.
[2025-02-23] MEDS ORDERED: VANCOMYCIN HCL 125 MG CAP PO SCH (09:00)
[2025-02-23] MEDS ORDERED: AZITHROMYCIN 250 MG TAB PO SCH (09:00)
--- NOTE | 2025-02-23 09:35 | NUR ---
ALERT AND ORIENTED IN BED. LIVES IN HOUSE WITH STAIRS. STATES HE HAS A CANE THAT HE USES. HE ALSO HAS OXYGEN THROUGH [facility] THAT HE DOES NOT USE REGULARLY. HE DRIVES AT BASELINE. HE DOES NOT HAVE ANY FINANCIAL CONCERNS. HE IS ABLE TO PAY UTILITES, FOOD AND MEDICATIONS. STATES HE HAS NO KNOWN CM NEEDS AT THIS TIME. WILL RETURN HOME WHEN MEDICALLY READY, AT THIS TIME.
--- NOTE | 2025-02-23 09:45 | NUR ---
PATIENT SITTING UP IN BED WHEN THIS RN ENTERED ROOM. PATIENT'S BROTHER IN LAW AT BEDSIDE.
--- NOTE | 2025-02-23 10:01 | NUR ---
PATIENT MEDICATED PER EMAR. PATIENT ASSESSMENT COMPLETED. PATIENT'S BROTHER IN LAW AT BEDSIDE. PATIENT WITHOUT FURTHER NEEDS ATHTIS TIME. CALL LIGHT AND PERSONAL BELONGINGS ARE WITHIN REACH.
[2025-02-23] MEDS ORDERED: ACETAMINOPHEN 325 MG TAB PO PRN (10:15)
[2025-02-23] MEDS ORDERED: LACTATED RINGER'S 1,000 ML IV SCH (10:15)
--- NOTE | 2025-02-23 11:20 | NUR ---
PATIENT MEDICATED PER EMAR. IV FLUSHED WITH 10ML OF NS, DRESSING IS INTACT. PATIENT WITHOUT FURTHER NEEDS AT THIS TIME. CALL LIGHT AND PERSONAL BELONGINGS ARE WITHIN REACH.
--- NOTE | 2025-02-23 11:32 | NUR ---
UR CLINICAL REVIEW: 2 MN FOR [facility]-PER POST OFFICE CLERK MEETS INPT FOR CDIFF COLITIS WITH NEED FOR IV ABX, IVF AND MONITORING MEDICARE INPT 02/23/25 @ 1012 ORDER MATCHES REG NO AUTH REQUIRED PER MEDICARE GUIDELINES DISCHARGE TO HOME WHEN STABLE
[2025-02-23] MEDS ORDERED: PHARMACY RENAL DOSE ADJUSTMENT 1 DOSE MISC PO SCH (12:00)
--- NOTE | 2025-02-23 12:00 | NUR ---
PATIENT SITTING UP IN HIS CHAIR EATING LUNCH. PATIENT ABX COMPLETED. IV FLUSHED WITH 10ML OF NS, DRESSING IS INTACT. IV FLUIDS INFUSING PER ORDER. PATIENT IS WITHOUT FURTHER NEEDS AT THIS TIME. CALL LIGHT AND PERSONAL BELONGINGS ARE WITHIN REACH.
--- NOTE | 2025-02-23 12:02 | NUR ---
MED REC COMPLETE
[2025-02-23] MEDS ORDERED: HYDROXYUREA 500 MG CAP PO SCH (13:00)
--- NOTE | 2025-02-23 13:10 | NUR ---
PATIENT MEDICATED PER EMAR. PATIENT RESTING IN BED READING HIS BOOK. FRESH ICE WATER PROVIDED. PATIENT IS WITHOUT FURTHER NEEDS AT THIS TIME. CALL LIGHT AND PERSONAL BELONGINGS ARE WITHIN REACH.
--- NOTE | 2025-02-23 13:45 | NUR ---
PATIENT RESTING IN BED WITH HIS EYES CLOSED AND MOUTH OPEN. EVEN AND UNLABORED RESPIRATIONS NOTED. CALL LIGHT AND PERSONAL BELONGINGS ARE WITHIN REACH.
--- NOTE | 2025-02-23 14:38 | NUR ---
PATIENT RESTING IN BED ON HIS RIGHT SIDE WITH HIS EYES CLOSED. EVEN AND UNLABORED RESPIRATIONS NOTED. PATIENT IS 96% ON ROOM AIR, CPOX AT BEDSIDE. CALL LIGHT AND PERSONAL BELONGINGS ARE WITHIN REACH.
--- NOTE | 2025-02-23 15:55 | NUR ---
PATIENT RESTING IN BED READING HIS BOOK AND DENIES ANY NEEDS AT THIS TIME. CALL LIGHT AND PERSONAL BELONGINGS ARE WITHIN REACH.
--- NOTE | 2025-02-23 16:55 | NUR ---
PATIENT SITTING UP IN BED EATING DINNER AND IS WITHOUT ANY NEEDS AT THIS TIME. CALL LIGHT AND PERSONAL BELONGINGS ARE WITHIN REACH
--- NOTE | 2025-02-23 17:30 | NUR ---
PATIENT MEDICATED PER EMAR. PATIENT IS FINISHING DINNER. PATIENT DENIES FURTHER NEEDS AT THIS TIME. CALL LIGHT AND PERSONAL BELONGINGS ARE WITHIN REACH.
--- NOTE | 2025-02-23 19:39 | NUR ---
REPORT RECEIVED FROM SUNNY FAIR. pt MEDICATED WITH PRN PAIN MEDICATION BY BARRY CORREA. TELE DC'D PER ORDERS. CCU UPDATED.
--- NOTE | 2025-02-23 20:45 | NUR ---
IN ROOM FOR ASSESSMENT. pt COMPLAINS OF 5/10 PAIN IN ABDOMEN. PRN TYLENOL ADMINISTERED. ASSESSMENT COMPLETE. VSS. NEW BAG IVF INFUSING WNL. IV SITE FLUSHED WNL. FLOOR MOPPED, ROOM TIDIED. WARM BLANKET PROVIDED. CALL LIGHT IN REACH. PRN SLEEP MEDICATION ALSO ADMINISTERED.
[2025-02-23] MEDS ORDERED: MELATONIN 3 MG TAB PO PRN (21:00)
--- NOTE | 2025-02-23 23:30 | NUR ---
CHECKED ON pt. STATES JUST GETTING BACK IN BED AFTER VOID. DENIES NEEDS. CALL LIGHT IN REACH. IVF INFUSING WNL.
[2025-02-24] VITALS (8 sets, daily range): BP systolic 126–177; BP diastolic 47–89
--- NOTE | 2025-02-24 00:20 | NUR ---
CALL LIGHT ANSWERED. PRN PAIN MEDICATION ADMINISTERED FOR 6/10 REPORTED ABDOMINAL PAIN. DENIES ADDITIONAL REQUESTS. CALL LIGHT IN REACH.
--- NOTE | 2025-02-24 02:14 | NUR ---
CHECKED ON pt. "JUST KIND OF WAKING UP AGAIN" PER pt. UP TO BSC SBA AND BACK TO BED. COMPLAINS OF ABDOMINAL DISCOMFORT. WARM PACK PROVIDED OVER BLANKET. CALL LIGHT IN REACH.
--- NOTE | 2025-02-24 03:36 | NUR ---
CHECKED ON pt. RESTING IN BED WITH EYES CLOSED, BREATHING UNLABORED. SPO2 WNL ON RA, CPOX ON.
[2025-02-24 05:47] LABS: BASOPHILS 0.9 % (0.2-1.2); EOSINOPHILS 3.1 % (0.8-7.0); LYMPHOCYTES 4.4 % (21.8-53.1); MCH 37.7 PG (25.7-32.2); MCHC 33.7 g/dL (32.3-36.5); MCV 111.9 fL (79.0-92.2); MONOCYTES 9.4 % (5.3-12.2); NEUTROPHILS 81.4 % (34.0-67.9); RBC 2.52 M/uL (4.63-6.08)
[2025-02-24 06:01] LABS: GLOMERULAR FILTRATION RATE,EST 66.0 mL/min (>60); UREA NITROGEN 27.0 mg/dL (7-18)
--- NOTE | 2025-02-24 06:19 | NUR ---
IN ROOM FOR VS. MORNING ASSESSMENT. pt RATES PAIN 4/10 IN ABDOMEN. PRN MEDICATION ADMINISTERED REQUESTED. pt AGITATED AT THIS TIME, SL TO AMBULATE TO RESTROOM FOR VOID, TO WASH HANDS, AND APPLY DENTURE CREAM. 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 CPOX OFF PER pt REQUEST. SPO2 WNL THROUGHOUT SHIFT ON RA. ALYSSIA WHITFIELD IN ROOM.
--- NOTE | 2025-02-24 07:28 | NUR ---
REPORT RECIEVED FROM SUNNY WYMAN. PATIENT SITTING UP IN BED AND DENIES ANY NEEDS AT THIS POINT. CALL LIGHT AND PERSONAL BELONGINGS ARE WITHIN REACH.
[2025-02-24] MEDS ORDERED: MAGNESIUM SULFATE 2 GM/50 ML BAG IV ONE (08:15)
--- NOTE | 2025-02-24 08:40 | NUR ---
PATIENT SITTING UP IN HIS BED EATING BREAKFAST. NO NEEDS AT THIS TIME. CALL LIGHT AND PERSONAL BELONGINGS ARE WITHIN REACH.
[2025-02-24] MEDS ORDERED: HYDROXYUREA 500 MG CAP PO SCH (09:00)
--- NOTE | 2025-02-24 09:16 | NUR ---
PATIENT MEDICATED PER EMAR. IV FLUSHED WITH 10ML OF NS, DRESSING IS INTACT. PATIENT'S FAMILY AT BEDSIDE. CALL LIGHT AND PERSONAL BELONGINGS ARE WITHIN REACH.
--- NOTE | 2025-02-24 10:13 | NUR ---
PATIENT RESTING IN BED ON HIS LEFT SIDE. PATIENT DENIES ANY NEEDS AT THIS TIME. IV FLUIDS INFUSING PER ORDER. CALL LIGHT AND PERSONAL BELONGINGS ARE WITHIN REACH.
--- NOTE | 2025-02-24 11:03 | NUR ---
NO CM NEEDS AT THIS TIME. STATES HE WILL BE STAYING AT LEAST 1 MORE NIGHT. PLANS TO DC TO HOME WHEN MEDICALLY READY.
--- NOTE | 2025-02-24 11:40 | NUR ---
PATIENT SITTING UP IN HIS CHAIR AND IS WITHOUT ANY NEEDS AT THIS TIME. CALL LIGHT AND PERSONAL BELONGINGS ARE WITHIN REACH.
--- NOTE | 2025-02-24 12:40 | NUR ---
PATIENT SITTING UP EATING LUNCH AND IS WITHOUT ANY NEEDS AT THIS TIME. CALL LIGHT AND PERSONAL BELONGINGS ARE WITHIN REACH.
--- NOTE | 2025-02-24 13:55 | NUR ---
IN ROOM FOR MEDICATION ADMINISTRATION. PATIENT UP TO THE BATHROOM AT THIS TIME. PATIENT DENIES ASSISTANCE.
--- NOTE | 2025-02-24 14:05 | NUR ---
PATIENT MEDICATED PER EMAR. PATIENT'S IV FLUSHED WITH 10ML OF NS, DRESSING IS INTACT. IV FLUIDS INFUSING PER ORDER. PATIENT IS WITHOUT FURTHER NEEDS AT THIS TIME. CALL LIGHT AND PERSONAL BELONGNIGS ARE WITHIN REACH.
[2025-02-24 15:08] LABS: ADENOVIRUS F 40/41 Not Detected (Not Detected); ASTROVIRUS Not Detected (Not Detected); C DIFFICILE TOXIN A/B Detected (Not Detected); CAMPYLOBACTER Not Detected (Not Detected); CRYPTOSPORIDIUM Not Detected (Not Detected); CYCLOSPORA CAYETANENSIS Not Detected (Not Detected); ENTAMOEBA HISTOLYTICA Not Detected (Not Detected); ENTEROAGGREGATIVE E COLI Not Detected (Not Detected); ENTEROPATHOGENIC E COLI Not Detected (Not Detected); ENTEROTOXIGENIC E COLI Not Detected (Not Detected); GIARDIA LAMBLIA Not Detected (Not Detected); NOROVIRUS GI/GII Detected (Not Detected); PLESIOMONAS SHIGELLOIDES Not Detected (Not Detected); ROTAVIRUS A Not Detected (Not Detected); SALMONELLA Not Detected (Not Detected); SAPOVIRUS Not Detected (Not Detected); SHIGA-TOXIN-PRODUCING E COLI Not Detected (Not Detected); SHIGELLA/ENTEROINVASIVE E COLI Not Detected (Not Detected); VIBRIO Not Detected (Not Detected); VIBRIO CHOLERAE Not Detected (Not Detected); YERSINIA ENTEROCOLITICA Not Detected (Not Detected)
--- NOTE | 2025-02-24 15:15 | NUR ---
PATIENT RESTING IN BED READING HIS BOOK. PATIENT DENIES ANY NEEDS AT THIS TIME. CALL LIGHT AND PERSONAL BELONGINGS ARE WITHIN REACH.
--- NOTE | 2025-02-24 15:23 | NUR ---
PATIENT LAYING IN BED. CALL LIGHT IS WITHIN REACH AND NO FURTHER NEEDS AT THIS TIME.
--- NOTE | 2025-02-24 16:55 | NUR ---
PATIENT UP TO THE BATHROOM AT THIS TIME. PATIENT WITHOUT ANY NEEDS. CALL LIGHT AND PERSONAL BELONGINGS ARE WITHIN REACH.
--- NOTE | 2025-02-24 17:28 | NUR ---
PATIENT MEDICATED PER EMAR. NEW BAG OF IV FLUIDS INFUSING PER ORDER. PATIENT'S IV FLUSHED WITH 10ML OF NS, DRESSING IS INTACT. PATIENT DENIES ABD PAIN AT THIS TIME AND STATES "MY POOP IS NOT SO RUNNY LIKE IT WAS. IT'S NOT SOLID POOP, BUT IT'S STARTING TO BECOME MORE FORMED." BOWEL TONES ARE ACTIVE IN ALL 4 QUADRANTS. PATIENT WITHOUT FURTHER NEEDS AT THIS TIME. CALL LIGHT AND PERSONAL BELONGINGS ARE WITHIN REACH.
--- NOTE | 2025-02-24 19:05 | NUR ---
RECEIVED REPORT FROM SUNNY FAIR. PATIENT AWAKE AND ALERT LAYING IN BED AND ABLE TO COMMUNICATE EFFETIVELY. IVF INFUSING WITHOUT DIFFICULTY. PATIENT ON PRECAUTIONS. NO NEEDS IDENTIFIED AT THIS TIME. CALL LIGHT IN REACH.
--- NOTE | 2025-02-24 20:52 | NUR ---
PT CALLED FOR HELP CLEANING UP SPILLED URINAL. FACE, HANDS, AND LEGS WASHED ALONG WITH FLOOR. NEW SOCKS FOR PT. VITALS DONE, CALL LIGHT IN REACH AND NO NEEDS AT THIS TIME.
--- NOTE | 2025-02-24 21:44 | NUR ---
SCHEDULED MEDICATIONS GIVEN PER ORDERS. PATIENT STATED A 4/10 PAIN LEVEL. LAYING IN BED WITH HOB ELEVATED, READING A BOOK. ASSESSMENT COMPLETED. BSC SET UP ON SIDE OF BED, BED ALARM SET. PATIENT EDUCATED ON SAFETY OF UTILIZING CALL LIGHT WHEN HE NEEDS TO GET UP, PATIENT VERBALIZED UNDERSTANDING. IVF INFUSING WITHOUT DIFFICULTY. NO NEEDS IDENTIFIED AT THIS TIME. CALL LIGHT AND BELOGINGS IN REACH.
--- NOTE | 2025-02-24 22:00 | NUR ---
PATIENT REQUESTED AND TAKEN A SANDWICH BOX. GARBAGED EMPTIED. BED BATH WIPES GIVEN PER PATIENT REQUEST. NO OTHER NEEDS AT THIS TIME. CALL LIGHT IN REACH.
--- NOTE | 2025-02-24 23:55 | NUR ---
ROUNDED ON PATIENT, LAYING ON LEFT SIDE WITH HOB ELEVATED. IVF INFUSING WITHOUT DIFFICULTY. BSC AND URINAL AT BEDSIDE. PATIENT AWAKE AND ALERT, EDUCATED BY THIS RN ON USE OF CALL LIGHT BEFORE EXITING BED, PATIENT VERBALIZED UNDERSTANDING. PATIENT STATED PREVIOUS PAIN MEDICATION WAS EFFECTIVE AND WAS ABLE TO REST HIS EYES. URINAL EMPITED. NO OTHER NEEDS AT THIS TIME. REFSUED SCD'S. BED ALARM SET AND CALL LIGHT IN REACH.
[2025-02-25] VITALS (8 sets, daily range): BP systolic 156–172; BP diastolic 62–77
--- NOTE | 2025-02-25 01:38 | NUR ---
ROUNDED ON PATIENT, RESTING WITH EYES CLOSED, RESPIRATIONS EVEN AND UNLABORED, NO DISTRESS NOTED. IVF INFUSING WITHOUT DIFFICULTY. NO OTHER NEEDS IDENTIFED, BED ALARM ON. CALL LIGHT IN REACH.
--- NOTE | 2025-02-25 03:01 | NUR ---
ROUNDED ON PATIENT, HE IS RESTING WITH EYES CLOSED, RESPIRATIONS EVEN AND UNLABORED. IVF CONTINUING TO INFUSE WITHOUT DIFFICULTY. NO NEEDS IDENTIFIED, CALL LIGHT IN REACH
--- NOTE | 2025-02-25 03:38 | NUR ---
NEW BAG OF IVF INFUSING PER ORDER WITHOUT DIFFICULTY. PAIN MEDICATION GIVEN PER PATIENT REQUEST FOR 6/10 PAIN. PATIENT RESTING WITH HOB ELEVATED, PATIENT REPOSITIONED. NO OTHER NEEDS AT THIS TIME. CALL LIGHT IN REACH.
--- NOTE | 2025-02-25 05:23 | NUR ---
VS AND I&O'S COMPLETED AND DOCUMENTED. ASSESSMENT COMPLETED. PATIENT AWAKE AND ALERT LAYING IN BED. IVF INFUSING WITHOUT DIFFICUTLY. PATIENT DENIES PAIN OR NEEDS AT THIS TIME. CALL LIGHT IN REACH, BED ALARM ON.
--- NOTE | 2025-02-25 05:25 | NUR ---
PATIENT STATES HIS ABDOMEN IS LESS TENDER AND HIS BM'S ARE LESS FREQUENT AND LESS LIQUID. PATIENT DENIES PAIN AT THIS TIME. CALL LIGHT IN REACH.
[2025-02-25 06:00] LABS: BASOPHILS 0.8 % (0.2-1.2); EOSINOPHILS 3.8 % (0.8-7.0); LYMPHOCYTES 4.7 % (21.8-53.1); MCH 37.8 PG (25.7-32.2); MCHC 34.1 g/dL (32.3-36.5); MCV 110.8 fL (79.0-92.2); MONOCYTES 8.3 % (5.3-12.2); NEUTROPHILS 81.8 % (34.0-67.9); RBC 2.41 M/uL (4.63-6.08)
[2025-02-25 06:13] LABS: GLOMERULAR FILTRATION RATE,EST 76.0 mL/min (>60); UREA NITROGEN 21.0 mg/dL (7-18)
[2025-02-25 06:17] LABS: SMEAR REVIEW BLOOD SEE COMMENTS
--- NOTE | 2025-02-25 07:00 | NUR ---
REPORT RECIEVED FROM SUNNY BAZAN. PATIENT RESTING IN BED LEANING TOWARDS HIS LEFT SIDE WITH HIS EYES CLOSED. EVEN AND UNLABORED RESPIRATIONS NOTED. CALL LIGHT AND PERSONAL BELONGINGS ARE WITHIN REACH.
--- NOTE | 2025-02-25 08:45 | NUR ---
PATIENT MEDICATED PER EMAR. PATIENT UP TO USE THE URINAL AND BACK IN BED. PATIENT'S IV FLUSHED WITH 10ML OF NS, DRESSING IS INTACT. IV ABX INFUSING PER ORDER. PATIENT ASSESSMENT COMPLETED. PATIENT VITAL SIGNS TAKEN AND ARE STABLE. PATIENT IS WITHOUT FURTHER NEEDS AT THIS TIME. FRESH ICE WATER AND HOT COFFEE PROVIDED. ALYSSIA MEDINA IN ROOM ASSISTING PATIENT. CALL LIGHT AND PERSONAL BELONGINGS ARE WITHIN REACH.
--- NOTE | 2025-02-25 09:30 | NUR ---
PATIENT MEDICATED PER EMAR. PATIENT SITTING UP IN HIS BED FINISHING BREAKFAST. PATIENT WITHOUT FURTHER NEEDS AT THIS TIME. IV FLUSHED WITH 10ML OF NS, DRESSING IS INTACT, IV FLUIDS INFUSING PER ORDER. CALL LIGHT AND PERSONAL BELONGINGS ARE WITHIN REACH.
[2025-02-25] MEDS ORDERED: MAGNESIUM SULFATE 2 GM/50 ML BAG IV ONE (10:00)
--- NOTE | 2025-02-25 11:06 | NUR ---
INTO SEE PATIENT. SPOKE WITH HIM ABOUT PT RECCOMENDATIONS FOR HOME HEALTH. SWATIT REFUSED. PATIENT STATES HIS BROTHER IN LAW WILL PICK HIM UP WHEN MEDICALLY CLEARED. NO FUTHER CM NEEDS.
--- NOTE | 2025-02-25 12:30 | NUR ---
PATIENT MEDICATED PER EMAR. PATIENT SITTING UP IN BED EATING LUNCH AND REFUSES TO GET UP TO HIS CHAIR. IV FLUIDS INFUSING PER EMAR. PATIENT IS WITHOUT FURTHER NEEDS AT THIS TIME. CALL LIGHT AND PERSONAL BELONGINGS ARE WITHIN REACH.
--- NOTE | 2025-02-25 13:07 | NUR ---
PATIENT RESTING IN BED READING HIS BOOK AND IS WITHOUT ANY NEEDS AT THIS TIME. CALL LIGHT AND PERSONAL BELONGINGS ARE WITHIN REACH.
--- NOTE | 2025-02-25 15:27 | NUR ---
PATIENT SITTING UP IN BED READING HIS BOOK AND IS WITHOUT FURTHER NEEDS AT THIS TIME. CALL LIGHT AND PERSONAL BELONGINGS ARE WITHIN REACH.
--- NOTE | 2025-02-25 17:20 | NUR ---
PATIENT MEDICATED PER EMAR. PATIENT SITTING UP IN BED EATING DINNER. PATIENT IS WITHOUT ANY NEEDS AT THIS TIME. CALL LIGHT AND PERSONAL BELONIGNGS ARE WITHIN REACH. ALYSSIA MEDINA IN ROOM ASSISTING PATIENT.
--- NOTE | 2025-02-25 19:10 | NUR ---
RECEIVED REPORT FROM USNNY FAIR. PATIENT SITTING UP IN BED, AWAKE AND ALERT. IVF INFUSING WITHOUT DIFFICULTY. PATIENT REQUESTING PAIN MEDICATION. ROOM TIDIED, PATIENT REPOSITIONED. NO OTHER NEEDS IDENTIFIED AT THIS TIME. CALL LIGHT IN REACH.
[2025-02-25] MEDS ORDERED: LACTOBACILLUS RHAMNOSUS GG 1 EACH CAP PO SCH (20:01)
--- NOTE | 2025-02-25 20:57 | NUR ---
PT SITTING AT EOB. VITALS DONE, URINAL AND BSC EMPTIED. COFEE PROVIED. CALL LIGHTIN REACH, NO NEEDS AT THIS TIME.
--- NOTE | 2025-02-25 21:32 | NUR ---
SCHEDULED MEDICATIONS GIVEN PER EMAR ORDERS. PATIENT SITTING UP IN BED, AWAKE AND ALERT AND ABLE TO COMMUNICATE EFFECTIVELY. PATIENT EDUCATED ABOUT NEW MEDICATIONS AND HE VERABLIZED UNDERSTANDING AND COMPLIANCE. ASSESSMENT COMPLETED. PATIENT PAIN REASSESSED AND STATED A 2/10 PAIN SAYING IT WAS "MUCH BETTER". IV FLUIDS INFUSING WTIHOUT DIFFICUTLY. PATIENT DENIES NEEDS AT THIS TIME. CALL LIGHT IN REACH.
--- NOTE | 2025-02-25 23:50 | NUR ---
ROUNDED ON PATIENT. PATIENT SPILLED COFFEE ON BLANKET, NEW LINEN PROVIDED. PATIENT REFUSED GOWN CHANGE. WARM BLANKET GIVEN. URINAL EMPTIED AND RECORDED. LIGHTS OUT IN ROOM, IVF INFUSING WITHOUT DIFFICUTLY. PATIENT DENIES FURTHER NEEDS, CALL LIGHT IN REACH.
--- NOTE | 2025-02-26 02:05 | NUR ---
NEW BAG OF IFV INFUSING PER ORDER WITHOUT DIFFICULTY. ASSESSMENT COMPLETED. SCHEDULED PAIN MEDICATION ADMINISTERED PER EMAR PER PATIENT REQUEST. NEW TOILET PAPER ROLL GIVEN. PATIENT REPOSITIONED IN BED, DENIES FURTHER NEEDS AT THIS TIME. CALL LIGHT IN REACH.
--- NOTE | 2025-02-26 03:50 | NUR ---
ROUNDED ON PATIENT, LAYING ON RIGHT SIDE WITH HOB ELEVATED. PATIENT RESTING WTIH EYES CLOSED, RESPIRATIONS EVEN AND UNLABORED ON ROOM AIR. IVF INFUSING WITHOUT DIFFICUTLY. NO NEEDS IDENTIFIED AT THIS TIME. CALL LIGHT IN REACH.
[2025-02-26 06:05] VITALS: BP 150/65
[2025-02-26 06:07] LABS: GLOMERULAR FILTRATION RATE,EST 79.0 mL/min (>60); UREA NITROGEN 20.0 mg/dL (7-18)
--- NOTE | 2025-02-26 06:08 | NUR ---
PT SITTING IN BED READING. COFFEE PROVIDED, URINAL AND BSC EMPTIED, VITALS DONE. CALL LIGHT IN REACH, NO NEEDS AT THIS TIME.
[2025-02-26 06:14] VITALS: BP 150/65
[2025-02-26 06:23] LABS: BASOPHILS 1.0 % (0.2-1.2); EOSINOPHILS 4.8 % (0.8-7.0); LYMPHOCYTES 5.9 % (21.8-53.1); MCH 37.1 PG (25.7-32.2); MCHC 34.0 g/dL (32.3-36.5); MCV 109.0 fL (79.0-92.2); MONOCYTES 8.8 % (5.3-12.2); NEUTROPHILS 78.5 % (34.0-67.9); RBC 2.67 M/uL (4.63-6.08)
[2025-02-26] MEDS ORDERED: BUDESONIDE 0.5 MG/2 ML VIAL INH SCH (08:00)
[2025-02-26] MEDS ORDERED: ARFORMOTEROL TARTRATE 15 MCG/2 ML VIAL INH SCH (08:00)
--- NOTE | 2025-02-26 08:51 | NUR ---
Patient in bed watching tv, alert and oriented x3, no acute distress. Patient reports back pain, admin oxycodone 5mg po at this time. Patient had large formed/soft brown stool. Fresh water provided to patient. No needs at this time, personal supplies and call light within reach.
[2025-02-26] MEDS ORDERED: VANCOMYCIN HCL125 MG PO (09:24)
[2025-02-26 09:25] VITALS: BP 157/82
--- NOTE | 2025-02-26 10:06 | NUR ---
INTO SEE PATIENT. PATIENT STILL REFUSING RECCOMENDATIONS OF HOME HEALTH. PATIENT SIGNED IMM LETTER. PATIENT TO DISCHARGE LATER TODAY. BROTHER IN LAW TO MAMMOGRAPHY SUPERVISOR. NO FUTHER CM NEEDS.
[2025-02-26 10:53] VITALS: BP 157/82
--- NOTE | 2025-02-26 12:10 | NUR ---
ADMIN OXYCODONE 5MG PO FOR REPORTS OF 5/10 BACK PAIN.
--- NOTE | 2025-02-26 12:52 | NUR ---
YESTERDAY PATIENT ATE A SANDWICH BOX AND DRANK A CUP OF MILK FOR HIS SNACK. THAN LAST NIGHT BEFORE I LEFT PATIENT ASKED FOR ANOTHER SANDWICH BOX AND A MILK.
--- NOTE | 2025-02-26 12:59 | NUR ---
ALSO ASKED PATIENT IF HE WOULD LIKE TO TAKE A SHOWER AND HE SAID NO BECAUSE BETWEEN MIDNIGHT AND TWO IN THE MORING HE DID HIS OWN BED BATH.
[2025-02-26 13:51] VITALS: BP 152/81
[2025-02-26 15:10] VITALS: BP 123/92
--- NOTE | 2025-02-26 15:13 | NUR ---
PATIENT GOT DRESSED AND PACKED ALL HIS STUFF. PATIENTS IV IS OUT EVERYTHING INTACT. WAITING FOR HIS RIDE TO COME SUPPOSE TO BE HER AT 1600.
== END 2025-02-26 16:05 | disposition home or self-care (01) | DRG 371 ==
LOC: ED 16:16 → MS 20:30
PROVIDERS: Emergency Medicine; Internal Medicine; ADMIT Student in an Organized Health Care Education/Training Program; ATTEND Student in an Organized Health Care Education/Training Program
DX: A04.72 Enterocolitis due to Clostridium difficile, not specified as recurrent (principal); J18.9 Pneumonia, unspecified organism; N17.9 Acute kidney failure, unspecified; N39.0 Urinary tract infection, site not specified; J44.0 Chronic obstructive pulmonary disease with (acute) lower respiratory infection; N40.0 Benign prostatic hyperplasia without lower urinary tract symptoms; M54.9 Dorsalgia, unspecified; G89.29 Other chronic pain; I10 Essential (primary) hypertension; F17.210 Nicotine dependence, cigarettes, uncomplicated; Z90.89 Acquired absence of other organs; Z87.19 Personal history of other diseases of the digestive system; Z98.890 Other specified postprocedural states; Z85.118 Personal history of other malignant neoplasm of bronchus and lung; Z90.79 Acquired absence of other genital organ(s); Z79.891 Long term (current) use of opiate analgesic; Z79.899 Other long term (current) drug therapy; Z79.51 Long term (current) use of inhaled steroids; Z85.841 Personal history of malignant neoplasm of brain
CPT/HCPCS: 36415; 74176; 80048; 80053; 81001; 83605; 83735; 85025; 85060; 87045; 87046; 87088; 87324; 97110; 97161; 97165; 97530; 97535; A9270; J0696; J3475; J7030; J7121

== ENCOUNTER 2025-03-12 13:05 | Emergency (ER) | payer MEDICARE, OTHER ==
[~2025-03-12] VITALS: Ht 167.6 cm; Wt 61.0 kg
--- OUTSIDE RECORDS SUMMARY | ~2025-03-12 | XMS | Continuity of Care Document ---
Demographics + + + | Address | [address] | | | [place] [address] | + + + | Preferred Language | Unknown | + + + | Marital Status | Never | + + + | Restoration Affiliation | Unknown | + + + | Race | White | + + + | Ethnic Group | Not or | + + + Author + + + | Author | [facility] | + + + | Organization | [facility] | + + + | Address | [address] | | | [place] [address] | + + + | Phone | | + + + Care Team Providers + + + + | Care Log Manager Name | Role | Phone | + + + + Unavailable | Unavailable | + + + + Unavailable | Unavailable | + + + + Allergies No information. Encounters No information. Functional Status No information. Immunizations No information. Medications + + + + | date | description | facility | + + + + | (no date) | HYDROXYUREA | [facility] [place] | | | [facility] | + + + + | (no date) | | [facility] | | | Fluticasone/Umeclidin/Vilan | [facility] | | | ter | | + + + + | (no date) | HYDROXYUREA | [facility] [place] | | | | [facility] | + + + + | (no date) | FINASTERIDE | [facility] [place] | | | | [facility] | + + + + | (no date) | CIPROFLOXACIN HCL | [facility] | | | | [facility] | + + + + | (no date) | ASPIRIN | [facility] | | | | [facility] | + + + + | (no date) | LISINOPRIL | [facility] | | | | [facility] | + + + + | (no date) | ASPIRIN | [facility] | | | | [facility] | + + + + | (no date) | ALBUTEROL SULFATE | [facility] | | | | [facility] | + + + + | (no date) | TAMSULOSIN HCL | [facility] | | | | [facility] | + + + + Problems + + + + | date | description | facility | + + + + | 2025-01-01 00:00 | [facility] | [facility] | | | | [facility] | + + + + Procedures No [...] 136 | mg/dL | (missing) | | [facility] | 11:28:07 [...] 80 | mg/dL | (missing) | | [facility] [...] 1.82 | mg/dL | (missing) | | [facility] [...] 3.8 | (missing) | (missing) | | [facility] [...] 21 | (missing) | (missing) | | [facility] | 11:28:07 | [facility] | | [...] (missing) | (missing) | | [facility] | 11::07 | [facility] | | | [...] 2.0 | mg/dL | (missing) | | [facility] | 11:28:07 | [facility] | | | [...] 7.0 | (missing) | (missing) | | [facility] | 11:28:07 | [facility] | | | [...] 3.5 | (missing) | (missing) | | [facility] [...] 3.5 | (missing) | (missing) | | [facility] | 11:28:07 | [facility] | | | [...] + + + + +-------+---------+ + | Merrillirub | 2025-01-01 | | 0.4 | mg/dL | (missing) | | [facility] | 11:28:07 | [facility] | | | [...] | | | | | | - | | | | | | | [...] | (missing) | | [facility] | :28:07 | [facility] | | | | | [...] (missing) | (missing) | | [facility] | 11:28:07 | [facility] | | | [...] units | + + + +---------+ | 2025-01-01 [...]
[~2025-03-12 13:05] MED LIST changes: +DIPHENOXYLATE-1 EACH PO; +OXYCODONE HCL5 M3 PO; +VANCOMYCIN HCL125 MG PO
--- OUTSIDE RECORDS SUMMARY | 2025-03-12 13:07 | XMS ---
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 Rolanda has no Care Guidelines for this patient. Anaya VISIT COUNT (12 MO.) 4 [facility] TOTAL 4 NOTE: Visits indicate total known visits. ED/C VISIT TRACKING (12 MO.) 03/12/2025 13:06 [facility] [place] TYPE: Emergency COMPLAINT: - MEDICATION REFILL 01/01/2025 10:57 [facility] [place] TYPE: Emergency COMPLAINT: - WEAKNESS DIAGNOSES: - Chronic obstructive pulmonary disease, unspecified - Dehydration - Diarrhea, unspecified - Essential (primary) hypertension - medical terminologist (current) use of inhaled steroids - Nicotine dependence, unspecified, uncomplicated - Other long term care social worker (current) drug therapy - Unspecified kidney failure - Weakness 12/05/2024 13:12 [facility] [place] TYPE: Emergency COMPLAINT: - CATHETER PROBLEM DIAGNOSES: - Benign prostatic hyperplasia without lower urinary tract symptoms - Chronic obstructive pulmonary disease, unspecified - Essential (primary) hypertension - Leakage of indwelling urethral catheter, initial encounter - Nicotine dependence, unspecified, uncomplicated - Other usp (current) drug therapy 09/06/2024 12:10 [facility] [place] TYPE: Emergency COMPLAINT: - HIP PAIN DIAGNOSES: - Encounter for issue of repeat prescription - Essential (primary) hypertension - Nicotine dependence, unspecified, uncomplicated - Other long term care social worker (current) drug therapy INPATIENT VISIT TRACKING (12 MO.) 02/23/2025 10:[address] [facility] [place] TYPE: Medical Surgical COMPLAINT: - COLITIS DIAGNOSES: - Acquired absence of other genital organ(s) - Acquired absence of other genital organ(s) - Acquired absence of other organs - Acquired absence of other organs - Acute kidney failure, unspecified - Acute kidney failure, unspecified - Benign prostatic hyperplasia without lower urinary tract symptoms - Benign prostatic hyperplasia without lower urinary tract symptoms - Chronic obstructive pulmonary disease with (acute) lower respiratory infection - Chronic obstructive pulmonary disease with (acute) lower respiratory infection - Diarrhea, unspecified - Dorsalgia, unspecified - Dorsalgia, unspecified - Enterocolitis due to Clostridium difficile, not specified as recurrent - Enterocolitis due to Clostridium difficile, not specified as recurrent - Essential (primary) hypertension - Essential (primary) hypertension - halfway (current) use of inhaled steroids - medical terminologist (current) use of inhaled steroids - medical terminologist (current) use of opiate analgesic - medical terminologist (current) use of opiate analgesic - Nicotine dependence, cigarettes, uncomplicated - Nicotine dependence, cigarettes, uncomplicated - Other chronic pain - Other chronic pain - Other long term care social worker (current) drug therapy - Other long term care social worker (current) drug therapy - Other specified postprocedural states - Other specified postprocedural states - Personal history of malignant neoplasm of brain - Personal history of malignant neoplasm of brain - Personal history of other diseases of the digestive system - Personal history of other diseases of the digestive system - Personal history of other malignant neoplasm of bronchus and lung - Personal history of other malignant neoplasm of bronchus and lung - Pneumonia, unspecified organism - Pneumonia, unspecified organism - Urinary tract infection, site not specified - Urinary tract infection, site not specified [id number]
[2025-03-12] MEDS ORDERED: OXYCODONE HCL5 M1 PO (13:32)
[2025-03-12 13:48] VITALS: BP 177/79
== END 2025-03-12 13:49 | disposition home or self-care (01) ==
LOC: ED 13:05
DX: R10.9 Unspecified abdominal pain (principal); G89.29 Other chronic pain; I10 Essential (primary) hypertension; J44.9 Chronic obstructive pulmonary disease, unspecified; F17.200 Nicotine dependence, unspecified, uncomplicated; Z88.1 Allergy status to other antibiotic agents
CPT/HCPCS: 99283

== ENCOUNTER 2025-04-07 13:54 | Emergency (ER) | payer MEDICARE, OTHER ==
[~2025-04-07] VITALS: Ht 167.6 cm; Wt 57.0 kg
[~2025-04-07 13:54] MED LIST changes: +OXYCODONE HCL5 M1 PO
--- OUTSIDE RECORDS SUMMARY | 2025-04-07 14:00 | XMS ---
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 Rolanda has no Care Guidelines for this patient. [facility] NOTE: Visits indicate total known visits. ED/C VISIT TRACKING (12 MO.) 04/07/2025 13:[address] [facility] [place] TYPE: Emergency COMPLAINT: - MEDICATION REFILL 03/12/2025 13:06 [facility] [place] TYPE: Emergency COMPLAINT: - MEDICATION REFILL DIAGNOSES: - Allergy status to other antibiotic agents - Chronic obstructive pulmonary disease, unspecified - Essential (primary) hypertension - Nicotine dependence, unspecified, uncomplicated - Other chronic pain - Unspecified abdominal pain 01/01/2025 10:57 [facility] [place] TYPE: Emergency COMPLAINT: - WEAKNESS DIAGNOSES: - Chronic obstructive pulmonary disease, unspecified - Dehydration - Diarrhea, unspecified - Essential (primary) hypertension - extermination supervisor (current) use of inhaled steroids - Nicotine dependence, unspecified, uncomplicated - Other extermination supervisor (current) drug therapy - Unspecified kidney failure - Weakness 12/05/2024 13:12 [facility] [place] TYPE: Emergency COMPLAINT: - CATHETER PROBLEM DIAGNOSES: - Benign prostatic hyperplasia without lower urinary tract symptoms - Chronic obstructive pulmonary disease, unspecified - Essential (primary) hypertension - Leakage of indwelling urethral catheter, initial encounter - Nicotine dependence, unspecified, uncomplicated - Other group home (current) drug therapy 09/06/2024 12:10 [facility] [place] TYPE: Emergency COMPLAINT: - HIP PAIN DIAGNOSES: - Encounter for issue of repeat prescription - Essential (primary) hypertension - Nicotine dependence, unspecified, uncomplicated - Other group home (current) drug therapy INPATIENT VISIT TRACKING (12 MO.) 02/23/2025 10:12 [facility] TYPE: Medical [facility] COMPLAINT: - COLITIS [...] (primary) hypertension - Essential (primary) hypertension - extermination supervisor (current) use of inhaled steroids - longterm (current) use of inhaled steroids - longterm (current) use of opiate analgesic - longterm (current) use of opiate analgesic - Nicotine dependence, cigarettes, uncomplicated - Nicotine dependence, cigarettes, uncomplicated - Other chronic pain - Other chronic pain - Other extermination supervisor (current) drug therapy - Other extermination supervisor (current) drug therapy - Other specified postprocedural [...] - Urinary tract infection, site not specified [id number]
[2025-04-07] MEDS ORDERED: OXYCODONE HCL5 M1 PO (14:50)
[2025-04-07] MEDS ORDERED: VANCOCIN HCL125 MG PO (14:50)
[2025-04-07 15:12] VITALS: BP 187/67
== END 2025-04-07 15:16 | disposition home or self-care (01) ==
LOC: ED 13:54
DX: C34.90 Malignant neoplasm of unspecified part of unspecified bronchus or lung (principal); Z76.0 Encounter for issue of repeat prescription; J44.9 Chronic obstructive pulmonary disease, unspecified; I10 Essential (primary) hypertension; F17.200 Nicotine dependence, unspecified, uncomplicated; Z79.2 Long term (current) use of antibiotics; Z79.899 Other long term (current) drug therapy
CPT/HCPCS: 99281